=== PATIENT | male | born 1960 | race Caucasian/White ===

== ENCOUNTER 2020-08-22 10:51 | Outpatient (RCR) | payer BC, SELFPAY | END 2020-09-04 14:49 | disposition home or self-care (01) | LOC: HO.PTCHIC 10:51 | PROVIDERS: PCP Nurse Practitioner Family; Visit Provider Nurse Practitioner Family | DX: M54.31 Sciatica, right side (principal); M54.32 Sciatica, left side | CPT/HCPCS: 97014; 97110; 97140 ==

== ENCOUNTER 2020-11-13 09:18 | Outpatient (REF) | payer BC, SELFPAY ==
[2020-11-13 11:48] LABS: Alanine Aminotransferase 22 U/L (0-40); Albumin Level 4.4 g/dL (3.5-5.0); Alkaline Phosphatase 88 U/L (39-117); Anion Gap 14 (12-20); Aspartate Amino Transferase 19 U/L (5-37); Bilirubin Total 0.7 mg/dL (0.0-1.0); Blood Urea Nitrogen 17 mg/dL (9-16); Calcium 9.6 mg/dL (8.4-10.2); Carbon Dioxide 30 mmol/L (22-29); Chloride 99 mmol/L (96-108); Cholesterol 242 mg/dL; Estimated Glomerular Filt Rate > 60; Glucose Fasting 99 mg/dL (60-99); HDL Cholesterol 52 mg/dL; LDL Cholesterol Calculated 169 mg/dl; Potassium 4.3 mmol/l (3.3-5.1); Sodium 139 mmol/L (135-145); Total Protein 7.7 g/dL (6.5-8.0); Triglycerides 109 mg/dL
[2020-11-13 12:10] LABS: TSH reflex Free T4 1.92 mIU/mL (0.32-4.0)
== END 2020-11-13 09:19 | disposition home or self-care (01) ==
LOC: HO.HMGCLDS 09:18
PROVIDERS: PCP Nurse Practitioner Family; Visit Provider Nurse Practitioner Family
DX: Z00.00 Encounter for general adult medical examination without abnormal findings (principal)
CPT/HCPCS: 36415; 80053; 80061; 84443

== ENCOUNTER 2021-10-14 10:56 | Emergency (ER) | payer BC, SELFPAY ==
--- NOTE | 2021-10-14 | ECG_ITS ---
Test Reason : SHORTNESS OF BREATH Blood Pressure : / mmHG Vent. Rate : 081 BPM Atrial Rate : 081 BPM P-R Int : 178 ms QRS Dur : 098 ms QT Int : 374 ms P-R-T Axes : 002 -40 004 degrees QTc Int : 434 ms Normal sinus rhythm Left axis deviation Abnormal ECG When compared with ECG of 13-JAN-2011 06:54, No significant change was found Referred By: Partha Glover Electronically Signed By:David Damian
--- NOTE | ~2021-10-14 | XR_ITS ---
EXAMINATION: XR CHEST CLINICAL INFORMATION: SOB. COMPARISON: None TECHNIQUE: 2 views of the chest were obtained. FINDINGS: The lungs are somewhat expanded with platelike atelectasis in the lingula. Heart size and pulmonary vascularity is normal. No gross bony abnormality seen. XR/XR chest 2V IMPRESSION: Platelike atelectasis in the lingula. Rest of the lungs are clear.
[2021-10-14 11:54] VITALS: BP 129/85; PULSE 90; RESP 18; TEMP 37.1; O2SAT 96; BMI 29.9
[2021-10-14 13:03] VITALS: BP 158/84; PULSE 88; RESP 16; TEMP 36.3; O2SAT 96
--- NOTE | 2021-10-14 13:04 | ED.SOB ---
HPI - SOB/Dyspnea General Chief Complaint: Dyspnea Stated Complaint: COVID+, SOB Time Seen by Provider: 10/14/21 13:04 Source: patient Mode of arrival: ambulatory Limitations: no limitations History of Present Illness HPI Narrative: 8 days ago patient developed shortness of breath and chills. Tested positive 6 days ago. patient is vaccinated. patient with fatigue, chills, not eating, headache and cough. MD elicited complaint: shortness of breath and cough Onset (ago): week(s) Context: recent illness Timing: constant Severity: mild Relieving factors: nothing Related Data Previous Rx's Medication Instructions Recorded lisinopril 40 mg tablet 40 mg PO DAILY 90 Days #90 tab 01/29/21 Allergies Allergy/AdvReac Type Severity Reaction Status Date / Time No Known Allergies Allergy Verified 01/31/21 09:18 [No Known Allergies*] Review of Systems Constitutional: Constitutional: Reports no additional constitutional complaints Eyes: Eyes: Reports no additional eye complaints ENT: Denies dizziness Cardiovascular: Cardiovascular: Reports no additional cardiovascular complaints Respiratory: Respiratory: Reports as per HPI Gastrointestinal: Gastrointestinal: Reports no additional gastrointestinal complaints Musculoskeletal: Musculoskeletal: Reports no additional musculoskeletal complaints Integumentary/Breasts: Skin/Breast: Denies rash Neurologic: Reports system reviewed and no additional complaints, except as documented, Denies dizziness and Denies Sensory deficit (Neuro) Psychiatric: Psychiatric: Denies anxiety PMFSH Past Medical History Medical History HTN (hypertension) Lumbar radiculitis Nerve root compression Osteoarthritis Prostate CA Tubular adenoma Surgical History History of prostatectomy Family History Family History Father History of heart attack Mother No problems noted. Sister Breast cancer Social History Social History Alcohol intake: current Alcohol intake frequency: a few times a month Advance Directives: No Advance Directives Information Provided: No Physical Exam Vital Signs: Vital Signs: Last Vital Signs Temp 97.3 F 10/14/21 13:03 Pulse 88 10/14/21 13:03 Resp 16 10/14/21 13:03 BP 158/84 H 10/14/21 13:03 Pulse Ox 96 10/14/21 13:03 BMI result Body Mass Index 29.9 Const: General: healthy appearing Nutritional Appearance: average body habitus Orientation/consciousness: oriented to person and patient oriented x3 Limitations: no limitations HENMT: Head: Yes normal to inspection Ears: external ears normal General nose exam: Normal external nose present Mouth: Normal oral and palatal mucosa present and oropharynx normal Throat: Yes posterior oropharynx normal Eyes: General: appearance normal, both eyes and all related structures Neck: Other: supple Neck: Yes normal visual inspection Chest: Chest palpation & inspection: normal inspection of the chest Resp: Auscultation: clear to auscultation bilaterally Cardio: Jugular venous distension: no JVD Rate: regular rate Rhythm: regular rhythm Heart sounds: S1 normal heart sound present and S2 normal heart sound present GI: Inspection: Yes normal to inspection Palpation (GI): Soft to palpation, nontender and No hepatosplenomegaly present Auscultation: normal bowel sounds : General: Yes no CVA tenderness Back/Spine/Pelvis: Back: no CVA tenderness Skin: General skin exam: no rashes or lesions noted Neuro: General: oriented to person and patient oriented x3 Cranial nerves: Yes CN's II-XII intact bilaterally Motor exam (neuro): 5/5 motor strength present throughout Sensory Exam: No Sensory deficit (Neuro) Extrem: General: Yes normal to inspection Psych: Appearance: grossly normal Course Reevaluation(s) Reevaluation #1: patient day 8 into COVID, looking well, normal vitals, normal labs will dc home Time: 14:30 MDM - SOB/Dyspnea Lab Data Result diagrams: 10/14/21 13:09 10/14/21 13:09 Labs: Lab Results 10/14/21 10/14/21 Range/Units 13:09 13:09 WBC 5.3 (4.8-10.8) X10*3/uL RBC 5.35 (4.60-5.80) X10*6/uL Hgb 16.7 (14.0-18.0) g/dl Hct 49.6 (42.0-52.0) % MCV 92.7 (80.0-98.0) fL MCH 31.2 (27.0-33.0) pg MCHC 33.7 (31.0-36.0) g/dl RDW 12.0 (11.0-16.0) % Plt Count 127 L (160-400) X10*3/uL MPV 10.0 (9.4-12.4) fL Immature Gran % (Auto) 0.4 (0.0-0.4) % Neut % (Auto) 74.3 H (45-73) % Lymph % (Auto) 14.5 L (20-40) % Kern % (Auto) 10.6 (2-11) % Eos % (Auto) 0.0 (0-4) % Baso % (Auto) 0.2 (0-2) % Lymph # (Auto) 0.8 L (1.2-4.9) X10*3/uL Kern # (Auto) 0.6 (0.1-1.2) X10*3/uL Eos # (Auto) 0.0 (0.0-0.4) X10*3/uL Baso # (Auto) 0.0 (0.0-0.2) X10*3/uL Abs Immat Gran (auto) 0.02 (0.00-0.03) X10*3/uL Absolute Neuts (auto) 3.9 (2.0-8.3) x10*3/uL Absolute Nucleated RBC 0.000 (0.0-0.012) X10*3/uL Nucleated RBC % (auto) 0.0 (0.0-0.2) /100WBC Sodium 137 (135-145) mmol/L Potassium 4.5 (3.3-5.1) mmol/L Chloride 101 (96-108) mmol/L Carbon Dioxide 26 (22-29) mmol/L Anion Gap 15 (12-20) BUN 11 (9-16) mg/dL Creatinine 0.89 (0.5-1.4) mg/dL Estim Creat Clear Calc 102.0 Estimated GFR > 60 Random Glucose 112 (60-115) mg/dL Calcium 9.0 D (8.4-10.2) mg/dL Imaging Data Chest x-ray: Radiologist's impression: no infiltrate Discharge Plan Discharge Clinical Impression: COVID-19 Patient Disposition: Home, Self-Care Instructions: COVID-19 (Coronavirus Disease 2019) (ED) Prescriptions: No Action lisinopril 40 mg tablet 40 mg PO DAILY 90 Days Qty: 90 RF: 0 Referrals: Dillon Lopez, NANOTECHNOLOGY ENGINEERING TECHNOLOGIST-BC [Primary Care Provider] - 1 week
[2021-10-14 13:16] LABS: MANUAL DIFF FLAG NO
[2021-10-14 13:21] LABS: Basophils Percent Auto 0.2 % (0-2); Hematocrit 49.6 % (42.0-52.0); Hemoglobin 16.7 g/dl (14.0-18.0); Imm Gran Abs Auto 0.02 X10*3/uL (0.00-0.03); Imm Gran Pct Auto 0.4 % (0.0-0.4); Lymphocytes Absolute Auto 0.8 X10*3/uL (1.2-4.9); Lymphocytes Percent Auto 14.5 % (20-40); Mean Corpuscular HGB Conc 33.7 g/dl (31.0-36.0); Mean Corpuscular Hemoglobin 31.2 pg (27.0-33.0); Mean Corpuscular Volume 92.7 fL (80.0-98.0); Monocytes Absolute Auto 0.6 X10*3/uL (0.1-1.2); Monocytes Percent Auto 10.6 % (2-11); Neutrophils Absolute Auto 3.9 x10*3/uL (2.0-8.3); Neutrophils Percent Auto 74.3 % (45-73); Platelet Count 127 X10*3/uL (160-400); Red Blood Count 5.35 X10*6/uL (4.60-5.80); White Blood Count 5.3 X10*3/uL (4.8-10.8)
[2021-10-14 13:36] LABS: Anion Gap 15 (12-20); Blood Urea Nitrogen 11 mg/dL (9-16); Carbon Dioxide 26 mmol/L (22-29); Chloride 101 mmol/L (96-108); Estimated Glomerular Filt Rate > 60; Glucose Random 112 mg/dL (60-115); Potassium 4.5 mmol/L (3.3-5.1); Sodium 137 mmol/L (135-145)
== END 2021-10-14 14:49 | disposition home or self-care (01) ==
PROVIDERS: Emergency Provider Emergency Medicine; PCP Nurse Practitioner Family
DX: U07.1 COVID-19 (principal); R06.02 Shortness of breath
CPT/HCPCS: 36415; 71046; 80048; 85025; 93005; 99283; 99285

== ENCOUNTER 2021-11-19 09:28 | Outpatient (REF) | payer BC, SELFPAY ==
--- NOTE | ~2021-11-19 | XR_ITS ---
EXAMINATION: XR CHEST CLINICAL INFORMATION: Chest pain. COMPARISON: Chest radiograph dated from 10/14/2021. TECHNIQUE: 2 views of the chest were obtained. FINDINGS: Normal appearance of the cardiomediastinal silhouette. No focal airspace opacities, pleural effusions or pneumothorax. No acute osseous abnormalities. Visualized upper abdomen is within normal limits. XR/XR chest 2V IMPRESSION: No focal airspace opacities, pleural effusions or pneumothorax. Of note, chest radiographs have decreased sensitivity for evaluation of groundglass opacities.
[2021-11-19 11:49] LABS: MANUAL DIFF FLAG NO
[2021-11-19 11:57] LABS: Basophils Percent Auto 0.6 % (0-2); Eosinophils Absolute Auto 0.2 X10*3/uL (0.0-0.4); Eosinophils Percent Auto 2.7 % (0-4); Hematocrit 43.1 % (42.0-52.0); Hemoglobin 14.7 g/dl (14.0-18.0); Imm Gran Abs Auto 0.04 X10*3/uL (0.00-0.03); Imm Gran Pct Auto 0.6 % (0.0-0.4); Lymphocytes Absolute Auto 2.2 X10*3/uL (1.2-4.9); Lymphocytes Percent Auto 31.9 % (20-40); Mean Corpuscular HGB Conc 34.1 g/dl (31.0-36.0); Mean Corpuscular Hemoglobin 31.5 pg (27.0-33.0); Mean Corpuscular Volume 92.3 fL (80.0-98.0); Mean Platelet Volume 10.5 fL (9.4-12.4); Monocytes Absolute Auto 0.9 X10*3/uL (0.1-1.2); Monocytes Percent Auto 13.2 % (2-11); Neutrophils Absolute Auto 3.6 x10*3/uL (2.0-8.3); Platelet Count 293 X10*3/uL (160-400); Red Blood Count 4.67 X10*6/uL (4.60-5.80); Red Cell Distribution Width 12.5 % (11.0-16.0)
[2021-11-19 12:11] LABS: Troponin-I High Sensitivity 3.8 ng/L (<3.5-35.0)
[2021-11-19 12:15] LABS: Alanine Aminotransferase 56 U/L (0-40); Albumin Level 3.9 g/dL (3.5-5.0); Alkaline Phosphatase 75 U/L (39-117); Anion Gap 13 (12-20); Aspartate Amino Transferase 30 U/L (5-37); Bilirubin Total 0.4 mg/dL (0.0-1.0); Blood Urea Nitrogen 14 mg/dL (9-16); Calcium 9.4 mg/dL (8.4-10.2); Carbon Dioxide 25 mmol/L (22-29); Chloride 106 mmol/L (96-108); Estimated Glomerular Filt Rate > 60; Glucose Random 108 mg/dL (60-115); Potassium 4.2 mmol/L (3.3-5.1); Sodium 140 mmol/L (135-145); Total Protein 6.9 g/dL (6.5-8.0)
[2021-11-19 12:26] LABS: Prostate Specific Antigen Scr 0.09 ng/mL (<0.05-4.0)
== END 2021-11-19 09:29 | disposition home or self-care (01) ==
LOC: HO.HMGCLDS 09:28
PROVIDERS: PCP Nurse Practitioner Family; Visit Provider Nurse Practitioner Family
DX: Z12.5 Encounter for screening for malignant neoplasm of prostate (principal); R07.89 Other chest pain
CPT/HCPCS: 36415; 71046; 80053; 84153; 84484; 85025

== ENCOUNTER → 2022-01-13 09:25 | Outpatient (REF) | payer BC, SELFPAY ==
--- NOTE | 2022-01-13 09:31 | CA_ITS ---
Transthoracic Echocardiogram Patient (Last, First, Middle): Keenan Jurado P Gender: Male Date of : 1960 Age: 61 Procedure Date: 01/13/2022 Procedure Type: Transthoracic Echocardiogram Location: OP Height: 177.8 cm Weight: 99.79 kg BSA: 2.17 m2 Heart Rate: bpm BP: 130 / 85 mmHg Yarding Engineer: VH/OT Referring MD: Dillon Lopez [facility] Grain Distributor: Rolando Jane MD Symptoms: R07.89 - Other chest pain Study Quality: Fair ECG Rhythm: Sinus Conclusions: - 1. Normal LV systolic and diastolci function 2. Normal cardiac valvular Dopplers 3. Normal RVSP 4. No pericardial effusion Findings Left Ventricle Normal left ventricular size, thickness, and systolic function. The visually estimated ejection fraction is between 60-65%. Spectral Doppler is indicative of a normal filling pattern. Possible basal inferior wall motion abnormality is present. Right Ventricle Normal right ventricular cavity size and systolic function. Atria The left atrium is normal in size. Interatrial shunt cannot be excluded. The right atrium is normal in size. Aortic Valve There is mild calcification of the aortic valve. There is no aortic valve stenosis. There is no aortic valve regurgitation. Mitral Valve There is mild anterior and posterior mitral leaflet thickening. There is trace mitral valve regurgitation. There is no mitral valve stenosis. Pulmonic Valve The pulmonic valve was not well visualized. Tricuspid Valve Likely normal tricuspid valve structure and function. Tricuspid regurgitation envelope is inadequate for calculation of right ventricular systolic pressure. Great Vessels All visible segments of the aorta are normal in size. The pulmonary artery was not well visualized. Venous The inferior vena cava is normal in size and collapses greater than 50% with inspiration. Pericardium/Pleural There is no evidence of pericardial effusion. Measurements 2D Linear Measurements IVSd: 0.82 0.6-0.9/0.6-1.0 cm LVIDd: 5.03 3.9-5.3/4.2-5.9 cm LVIDd Index: 2.32 2.4-3.2/2.2-3.1 cm/m2 LVIDs: 3.28 2.0-3.6 cm LVPWd: 0.90 0.7-1.1 cm LA Diam: 4.20 2.7-3.8/3.0-4.0 cm LAIDs Index: 1.94 1.5-2.3 cm/m2 LV Mass: 188.63 67-162/88-224 g LV Mass Index: 86.93 43-95/49-115 g/m2 LVOT Diam: 2.10 3.0+(-)1.3 cm Mitral Valve MV Pk E: 0.77 MV PK A: 0.62 MV Decel Time: 184.00 E/A: 1.20 E'Lateral: 8.59 E'Medial: 6.74 E/E' Med: 11.40 E/E' Lat: 9.00 PHT: 54.00 MVA PHT: 4.07 Decel [place]: 4.19 Aortic Valve AoV Pk David: 1.32 AoV Mn David: 0.94 AoV VTI: 0.31 AoV Pk Grad: 7.00 Aov Mn Grad: 4.00 NILO Cont.VTI: 2.52 LVOT LVOT Pk David: 0.99 LVOT Mn David: 0.68 LVOT VTI: 0.22 LVOT Pk Grad: 4.00 LVOT Mn Grad: 2.00 LVOT Diam: 2.10 LVOT Area: 3.46 Diastolic Function MV Pk E: 0.77 MV Pk A: 0.62 E/A: 1.20 E'Medial: 6.74 E/E' Med: 11.40 E' Laterial: 8.59 E/E' Lat: 9.00 Tricuspid Valve RA Press: 3.00 Great Vessels Aorta Ao Asc: 3.50 2.1-3.4 cm Pulmonary Valve PV Pk David: 1.07 Peak PV Grad: 5.00 Updated in Other Vendor System with Status of Final Rolando Jane MD electronically signed on 01/13/2022 8:49:19 PM with status of Final
== END ==
LOC: HO.CARD 09:25
PROVIDERS: PCP Nurse Practitioner Family; Visit Provider Nurse Practitioner Family
DX: R07.89 Other chest pain (principal)
CPT/HCPCS: 93306

== ENCOUNTER → 2022-01-31 08:50 | Outpatient (BNVA) | payer BC, SELFPAY | PROVIDERS: PCP Nurse Practitioner Family; Visit Provider Urology | DX: C61 Malignant neoplasm of prostate (principal); R97.20 Elevated prostate specific antigen [PSA] | CPT/HCPCS: 99212 ==

== ENCOUNTER 2022-07-24 11:09 | Outpatient (REF) | payer BC, SELFPAY ==
[2022-07-24 14:49] LABS: Prostate Specific Antigen 0.09 ng/mL (<0.05-4.0)
== END 2022-07-24 11:10 | disposition home or self-care (01) ==
LOC: HO.HMGCLDS 11:09
PROVIDERS: PCP Nurse Practitioner Family; Visit Provider Urology
DX: Z12.5 Encounter for screening for malignant neoplasm of prostate (principal); C61 Malignant neoplasm of prostate
CPT/HCPCS: 36415; 84153

== ENCOUNTER 2022-11-11 08:23 | Outpatient (REF) | payer BC, SELFPAY ==
[2022-11-11 11:19] LABS: MANUAL DIFF FLAG NO
[2022-11-11 11:30] LABS: Appearance Urine Clear; Color Urine Yellow; Glucose Urine UA Negative (Negative); Leukocyte Esterase Urine Negative (Negative); Nitrite Urine Negative (Negative); PH 5.5 (5.0-9.0); Specific Gravity - Urine 1.025 (1.005-1.025); Urine Blood Negative (Negative); Urine Ketones Negative (Negative); Urine Protein Negative (Neg-Trace)
[2022-11-11 11:36] LABS: Basophils Percent Auto 0.5 % (0-2); Eosinophils Absolute Auto 0.4 X10*3/uL (0.0-0.4); Eosinophils Percent Auto 4.8 % (0-4); Hematocrit 46.6 % (42.0-52.0); Hemoglobin 15.4 g/dl (14.0-18.0); Imm Gran Abs Auto 0.04 X10*3/uL (0.00-0.03); Imm Gran Pct Auto 0.5 % (0.0-0.4); Lymphocytes Absolute Auto 2.7 X10*3/uL (1.2-4.9); Mean Corpuscular Hemoglobin 30.7 pg (27.0-33.0); Mean Platelet Volume 10.2 fL (9.4-12.4); Monocytes Absolute Auto 1.1 X10*3/uL (0.1-1.2); Monocytes Percent Auto 12.1 % (2-11); Neutrophils Absolute Auto 4.5 x10*3/uL (2.0-8.3); Neutrophils Percent Auto 51.1 % (45-73); Platelet Count 244 X10*3/uL (160-400); Red Blood Count 5.01 X10*6/uL (4.60-5.80); Red Cell Distribution Width 12.6 % (11.0-16.0); White Blood Count 8.8 X10*3/uL (4.8-10.8)
[2022-11-11 11:46] LABS: Alanine Aminotransferase 20 U/L (0-40); Albumin Level 4.2 g/dL (3.5-5.0); Alkaline Phosphatase 95 U/L (39-117); Anion Gap 13 (12-20); Aspartate Amino Transferase 20 U/L (5-37); Bilirubin Total 0.7 mg/dL (0.0-1.0); Blood Urea Nitrogen 22 mg/dL (9-16); Calcium 9.1 mg/dL (8.4-10.2); Carbon Dioxide 28 mmol/L (22-29); Chloride 100 mmol/L (96-108); Cholesterol 248 mg/dL; Estimated Glomerular Filt Rate > 60; Glucose Fasting 97 mg/dL (60-99); HDL Cholesterol 49 mg/dL; LDL Cholesterol Calculated 180 mg/dl; Potassium 4.4 mmol/L (3.3-5.1); Sodium 137 mmol/L (135-145); Total Protein 7.2 g/dL (6.5-8.0); Triglycerides 96 mg/dL
[2022-11-11 12:09] LABS: TSH reflex Free T4 1.81 uIU/mL (0.32-4.0)
== END 2022-11-11 08:24 | disposition home or self-care (01) ==
LOC: HO.HMGCLDS 08:23
PROVIDERS: PCP Nurse Practitioner Family; Visit Provider Nurse Practitioner Family
DX: Z00.00 Encounter for general adult medical examination without abnormal findings (principal)
CPT/HCPCS: 36415; 80053; 80061; 81003; 84443; 85025

== ENCOUNTER 2023-01-22 07:37 | Outpatient (REF) | payer BC, SELFPAY ==
[2023-01-22 11:51] LABS: Cholesterol 153 mg/dL; HDL Cholesterol 49 mg/dL; LDL Cholesterol Calculated 95 mg/dl; Triglycerides 49 mg/dL
[2023-01-22 12:32] LABS: Prostate Specific Antigen 0.11 ng/mL (<0.05-4.0)
== END 2023-01-22 07:38 | disposition home or self-care (01) ==
LOC: HO.HMGCLDS 07:37
PROVIDERS: Absent Provider Urology; PCP Nurse Practitioner Family; Visit Provider Nurse Practitioner Family
DX: Z12.5 Encounter for screening for malignant neoplasm of prostate (principal); C61 Malignant neoplasm of prostate; E78.5 Hyperlipidemia, unspecified
CPT/HCPCS: 36415; 80061; 84153

== ENCOUNTER → 2023-02-03 09:16 | Outpatient (BNVA) | payer BC, SELFPAY | PROVIDERS: PCP Nurse Practitioner Family; Visit Provider Urology | DX: Z13.89 Encounter for screening for other disorder (principal) ==

== ENCOUNTER 2023-06-22 08:37 | Outpatient (REF) | payer BC, SELFPAY ==
[2023-06-22 11:54] LABS: MANUAL DIFF FLAG NO
[2023-06-22 11:54] LABS: Appearance Urine Clear; Color Urine Yellow; Glucose Urine UA Negative (Negative); Leukocyte Esterase Urine Negative (Negative); Nitrite Urine Negative (Negative); PH 5.5 (5.0-9.0); Urine Blood Negative (Negative); Urine Ketones Negative (Negative); Urine Protein Negative (Neg-Trace)
[2023-06-22 12:19] LABS: Basophils Absolute Auto 0.1 X10*3/uL (0.0-0.2); Basophils Percent Auto 0.6 % (0-2); Eosinophils Absolute Auto 0.4 X10*3/uL (0.0-0.4); Hematocrit 47.6 % (42.0-52.0); Hemoglobin 15.9 g/dl (14.0-18.0); Imm Gran Abs Auto 0.04 X10*3/uL (0.00-0.03); Imm Gran Pct Auto 0.5 % (0.0-0.4); Lymphocytes Absolute Auto 2.5 X10*3/uL (1.2-4.9); Lymphocytes Percent Auto 31.5 % (20-40); Mean Corpuscular HGB Conc 33.4 g/dl (31.0-36.0); Mean Corpuscular Hemoglobin 31.7 pg (27.0-33.0); Mean Platelet Volume 10.8 fL (9.4-12.4); Monocytes Absolute Auto 0.8 X10*3/uL (0.1-1.2); Monocytes Percent Auto 9.7 % (2-11); Neutrophils Absolute Auto 4.2 x10*3/uL (2.0-8.3); Neutrophils Percent Auto 52.7 % (45-73); Platelet Count 245 X10*3/uL (160-400); Red Blood Count 5.01 X10*6/uL (4.60-5.80); Red Cell Distribution Width 12.9 % (11.0-16.0); White Blood Count 7.9 X10*3/uL (4.8-10.8)
[2023-06-22 12:58] LABS: Alanine Aminotransferase 15 U/L (0-40); Alkaline Phosphatase 78 U/L (39-117); Anion Gap 12 (12-20); Aspartate Amino Transferase 16 U/L (5-37); Bilirubin Total 0.4 mg/dL (0.0-1.0); Blood Urea Nitrogen 18 mg/dL (9-16); Calcium 9.4 mg/dL (8.4-10.2); Carbon Dioxide 28 mmol/L (22-29); Chloride 103 mmol/L (96-108); Cholesterol 181 mg/dL; Estimated Glomerular Filt Rate > 60; Glucose Fasting 106 mg/dL (60-99); HDL Cholesterol 48 mg/dL; LDL Cholesterol Calculated 102 mg/dl; Sodium 139 mmol/L (135-145); TSH reflex Free T4 2.25 uIU/mL (0.32-4.0); Total Protein 7.3 g/dL (6.5-8.0); Triglycerides 155 mg/dL
== END 2023-06-22 08:38 | disposition home or self-care (01) ==
LOC: HO.HMGCLDS 08:37
PROVIDERS: PCP Nurse Practitioner Family; Visit Provider Nurse Practitioner Family
DX: E78.5 Hyperlipidemia, unspecified (principal); I10 Essential (primary) hypertension
CPT/HCPCS: 36415; 80053; 80061; 81003; 84443; 85025

== ENCOUNTER 2023-06-29 08:30 | Outpatient (AMB) | payer BC, SELFPAY ==
[2023-06-29 08:41] VITALS: BP 130/84; PULSE 78; O2SAT 95; BMI 32.0
--- NOTE | 2023-06-29 08:41 | MHC.PC.OV ---
Vital Signs 06/29/23 08:41 Height 5 ft 10 in Weight 223 lb 4 oz BMI 32.0 BP 130/84 Blood Pressure Location Lt brachial Position Sitting Pulse 78 Pulse Source Pulse Oximeter Pulse Oximetry (%) 95 Oxygen Delivery Method Room Air Intake Visit Reasons: 5 month follow up Allergies No Known Allergies [No Known Allergies*] Allergy (Verified 06/29/23 08:45) Tobacco use date assessed: 02/02/23 Dental Screening Dental Screen Date: 06/29/23 Did you have a dental visit in the last 12 months?: No Did you have a dental problem in the last 6 months where you did not have access to dental care?: No Was dental information given to patient?: No HPI 5 month follow up HPI Details HTN: Blood pressure is stable, managed with lisinopril 40mg. Dyslipidemia: On rosuvastatin 10mg. Will order labs. Denies chest pain, shortness of breath, headache, dizziness, and blurred vision. Pt is currently undergoing radiation at [facility] for prostate cancer. [facility] Medical History HTN (hypertension) Lumbar radiculitis Nerve root compression Osteoarthritis Post-COVID chronic decreased mobility and endurance Prostate CA Tubular adenoma Surgical History History of prostatectomy Family History Father History of heart attack Mother No problems noted. Sister Breast cancer Daughter Mental health disorder Social History Housing: House Alcohol intake: current Alcohol intake frequency: a few times a month Patient Tobacco Use Status: Never used Tobacco e-Cigarette/Vaping Use: Never Used Second Hand Smoke Exposure: No service: No Current occupational status: employed Current occupation: [employer] Current occupational exposures/hazards: Yes Cognitive needs: No Hearing needs: No Vision needs: No Questionnaire Thrive Questionnaire Date Thrive assessed: 10/08/22 SYLVIA-7 AMB Questionnaire SYLVIA-7 Date SYLVIA - 7 assessed: 10/08/22 Source: Developed by Drs. Keenan Allen, Ava Lobo, Laron Jimenez and colleagues, with an educational miracle from [employer]. Review of Systems Const Reports as per HPI Physical exam (Primary Care) Vital Signs: Last Vital Signs Pulse 78 06/29/23 08:41 BP 130/84 06/29/23 08:41 Pulse Ox 95 06/29/23 08:41 Oxygen Delivery Method Room Air 06/29/23 08:41 BMI result Body Mass Index 32.0 Tobacco/Smoking Status: Tobacco use Status Tobacco use date assessed 02/02/23 06/29/23 08:46 Patient Tobacco Use Status Never used Tobacco 06/29/23 08:46 e-Cigarette/Vaping Use Never Used 06/29/23 08:46 Thrive Assessment: Date of Thrive Assessment Date Thrive assessed 10/08/22 06/29/23 08:46 Const General: cooperative Nutritional Appearance: obese Orientation/consciousness: patient oriented x3 Resp Effort & Inspection: normal respiratory effort Auscultation: clear to auscultation bilaterally Cardio Rate: regular rate Rhythm: regular rhythm Heart sounds: S1 normal heart sound present and S2 normal heart sound present Neuro General: patient oriented x3 Psych Appearance: grossly normal Mental Status: mental status grossly normal Speech and movement: Normal speech and movement present Affect: normal affect Attitude: cooperative Thought process: Normal thought process present Thought content: Normal thought content present Insight: Good insight present (Psych) Judgement: Good judgement present (Psych) Assessment and Plan Assessment & Plan (1) HTN (hypertension): Code(s): I10 - Essential (primary) hypertension Plan: Labs ordered (2) Dyslipidemia: Code(s): E78.5 - Hyperlipidemia, unspecified Plan: Labs ordered Plan The patient agreed to the use of a medical parasitologist for this encounter. Scribed for AMANDA Bustamante by Sharda Gentile medical parasitologist, on 06/29/2023 at 08:55 EST. Orders: Orders Comprehensive Bowman. Panel Fast Today E78.5 - Hyperlipidemia, unspecified, I10 - Essential (primary) hypertension Lipid Panel Today E78.5 - Hyperlipidemia, unspecified, I10 - Essential (primary) hypertension TSH reflex Free T4 Today E78.5 - Hyperlipidemia, unspecified, I10 - Essential (primary) hypertension Complete Blood Count Auto Diff Today E78.5 - Hyperlipidemia, unspecified, I10 - Essential (primary) hypertension UA CC w/rflx Micro + Cult Today E78.5 - Hyperlipidemia, unspecified, I10 - Essential (primary) hypertension Coding Level of Care Code Est Pt Level 3 (35122) Diagnoses HTN (hypertension) I10 Dyslipidemia E78.5
== END 2023-06-29 09:02 | disposition home or self-care (01) ==
PROVIDERS: PCP Nurse Practitioner Family; Visit Provider Nurse Practitioner Family
DX: I10 Essential (primary) hypertension (principal); E78.5 Hyperlipidemia, unspecified
CPT/HCPCS: 99213

== ENCOUNTER 2023-11-20 06:11 | Day surgery (SDC) | payer BC, SELFPAY ==
[2023-11-18 10:07] VITALS: BMI 32.0
--- NOTE | 2023-11-19 09:57 | HO.ANESPROP2 ---
Documented by User: Florecita Jules NP 11/19/23 09:58 HPI - Anesthesia Eval Consult details Narrative: 63yo M for Colonoscopy PMFSH Active Problems Active Problems: All Active Problems (Updated 11/18/23 @ 10:11 by Jennifer Lundy, DEAN) Rising PSA following treatment for malignant neoplasm of prostate (Acute) Dyslipidemia (Acute) Skin lesions (Acute) Screening for colon cancer (Acute) Rising PSA level (Acute) Screening PSA (prostate specific antigen) (Acute) Chest discomfort (Acute) Fatigue (Acute) COVID-19 (Acute) Cerumen impaction (Acute) Bilateral hearing loss due to cerumen impaction (Acute) Screening PSA (prostate specific antigen) (Acute) Physical exam (Acute) HTN (hypertension) (Acute) Prostate CA (Acute) History of prostatectomy (Acute) Post-COVID chronic decreased mobility and endurance (Acute) Past Medical History Medical History (Updated 11/20/23 @ 06:48 by Eneida Pfeiffer) History of radiation therapy Elevated cholesterol Post-COVID chronic decreased mobility and endurance Nerve root compression Lumbar radiculitis Tubular adenoma Prostate CA Osteoarthritis HTN (hypertension) Family History Family History Father History of heart attack Mother No problems noted. Sister Breast cancer Daughter Mental health disorder Surgical History Surgical History (Updated 11/20/23 @ 06:48 by Eneida Pfeiffer) History of knee surgery H/O colonoscopy Hx of prostate biopsy Hx of cystoscopy History of prostatectomy Social History Social History (Reviewed 02/03/23 @ 09:19 by Salma Curry [facility]) Housing: House Alcohol intake: current Alcohol intake frequency: a few times a month Patient Tobacco Use Status: Never used Tobacco e-Cigarette/Vaping Use: Never Used Second Hand Smoke Exposure: No Use of substances other than those prescribed or required for medical reasons: No Are you DNR?: No Advance Directives: No Advance Directives Information Provided: Yes service: No Current occupational status: employed Current occupation: [employer] Current occupational exposures/hazards: Yes Cognitive needs: No Hearing needs: No Vision needs: No Meds Allergies Allergy/AdvReac Type Severity Reaction Status Date / Time No Known Allergies Allergy Verified 11/20/23 06:48 [No Known Allergies*] Exam Height,Weight and Vital Signs: Height 5 ft 10 in Weight 101.151 kg Pertinent Lab Results Pertinent Lab Results: Laboratory Tests 06/22/23 08:43 WBC 7.9 Hgb 15.9 Hct 47.6 Plt Count 245 Sodium 139 Potassium 4.0 Chloride 103 Carbon Dioxide 28 BUN 18 H Creatinine 0.92 Narrative Narrative: ECHO 2021 Conclusions: - 1. Normal LV systolic and diastolci function 2. Normal cardiac valvular Dopplers 3. Normal RVSP 4. No pericardial effusion Assessment and Plan Assessment Anesthesia Assessment: Chart Reviewed Documented by User: Muriel Chun MD 11/20/23 08:13 PMFSH Active Problems Active Problems: All Active Problems (Updated 11/20/23 @ 07:20 by Muriel Chun MD) Rising PSA following treatment for malignant neoplasm of prostate (Acute) Dyslipidemia (Acute) Skin lesions (Acute) Screening for colon cancer (Acute) Chest discomfort (Acute) Fatigue (Acute) Cerumen impaction (Acute) Bilateral hearing loss due to cerumen impaction (Acute) HTN (hypertension) (Acute) Prostate CA (Acute) History of prostatectomy (Acute) Post-COVID chronic decreased mobility and endurance (Acute) Snores but never had sleep study Past Medical History Medical History (Updated 11/20/23 @ 06:48 by Eneida Pfeiffer) History of radiation therapy Elevated cholesterol Post-COVID chronic decreased mobility and endurance Nerve root compression Lumbar radiculitis Tubular adenoma Prostate CA Osteoarthritis HTN (hypertension) Family History Family History Father History of heart attack Mother No problems noted. Sister Breast cancer Daughter Mental health disorder Family history of problems with anesthesia: No Surgical History Surgical History (Updated 11/20/23 @ 06:48 by Eneida Pfeiffer) History of knee surgery H/O colonoscopy Hx of prostate biopsy Hx of cystoscopy History of prostatectomy History of Problems with Anesthesia: No Social History Social History Housing: House Alcohol intake: current Alcohol intake frequency: a few times a month Patient Tobacco Use Status: Never used Tobacco e-Cigarette/Vaping Use: Never Used Second Hand Smoke Exposure: No Use of substances other than those prescribed or required for medical reasons: No Are you DNR?: No Advance Directives: No Advance Directives Information Provided: Yes service: No Current occupational status: employed Current occupation: [employer] Current occupational exposures/hazards: Yes Cognitive needs: No Hearing needs: No Vision needs: No Meds Allergies Allergy/AdvReac Type Severity Reaction Status Date / Time No Known Allergies Allergy Verified 11/20/23 06:48 [No Known Allergies*] Exam Height,Weight and Vital Signs: Height 5 ft 10 in Weight 101.151 kg Vital Signs Temp Pulse Resp BP Pulse Ox O2 Del Method 11/20/23 06:49 97.7 F 70 16 143/82 H 98 Room Air Airway Mallampati Class: III TM Dist: >3cm Neck ROM: Full Loose/Missing/Broken Teeth: Yes (Some broken teeth. Denies missing or loose teeth) Heart: RRR Lungs: CTAB Assessment and Plan Assessment Anesthesia Assessment: Anesthesia Plan Discussed Final Anesthetic Review Family History of Problems with Anesthesia: No History of Problems with Anesthesia: No NPO: Yes ASA Class: III Final Preanesthetic Review: No Changes in Pt Med Stat, Meds/Allgs Chart Reviewed, Consent Obtained/Reviewed and Anes Risks/Benef Reviewed Patient Risk: Intermediate Procedure Risk: Low Assessment/Block/Sedation in SS: Assess/Block/Sedation-SS Anesthetic Plan Anesthetic Plan: TIVA Disposition: Standard PACU
[2023-11-20 06:49] VITALS: BP 143/82; PULSE 70; RESP 16; TEMP 36.5; O2SAT 98; BMI 32.9
[2023-11-20] MEDS: Lactated Ringers 1,000 ML 100 ML IVCONT (07:07)
--- NOTE | 2023-11-20 08:28 | P.BOP_ITS ---
Brief Operative Note Date of Service: 11/20/23 Pre-op diagnosis: Screening Post-op diagnosis: other (Colon polyps) Procedure: Colonoscopy to the cecum and TI with hot snare polypectomy x 2 Surgeon: Keenan Pickering MD Anesthesia: MAC Was an Wastewater Treatment Supervisor used for this Procedure?: No Estimated blood loss (mL): 0 Pathology: other (A. Transverse colon polyp B. Polyp at 30cm) Condition: stable Disposition: PACU
[2023-11-20 08:33] VITALS: BP 96/57; PULSE 68; RESP 16; TEMP 36.6; O2SAT 97
[2023-11-20 08:48] VITALS: BP 127/79; PULSE 68; RESP 16; TEMP 36.2; O2SAT 95
[2023-11-20 08:54] VITALS: BP 129/75; PULSE 65; RESP 16; TEMP 36.2; O2SAT 95
--- NOTE | 2023-11-20 09:58 | OP_ITS ---
DATE OF SERVICE: 11/20/2023 SURGEON: Keenan Pickering MD INDICATIONS: The patient presents for evaluation of personal history of tubular adenoma of the colon, colorectal cancer screening. Full consent was obtained from him for the procedure, including risks of bleeding and perforation. PREOPERATIVE DIAGNOSIS: POSTOPERATIVE DIAGNOSIS: PROCEDURE PERFORMED: Colonoscopy to the cecum and terminal ileum with hot snare polypectomy x2. ESTIMATED BLOOD LOSS: COMPLICATIONS: ANESTHESIA: Monitored anesthesia care. ASSISTANTS: SPECIMENS: PREOPERATIVE DIAGNOSES: Colorectal cancer screening and personal history of tubular adenoma of the colon. POSTOPERATIVE DIAGNOSES: Colorectal cancer screening and personal history of tubular adenoma of the colon, colon polyps, diverticulosis, and internal hemorrhoids. DESCRIPTION OF PROCEDURE: The patient was placed in the left lateral decubitus position. The digital rectal exam revealed no abnormalities. The Olympus video pediatric colonoscope was entered into the rectum and advanced easily to the cecum. Once in the cecum, I did identify normal-appearing cecal pouch with appendiceal orifice and a normal-appearing ileocecal valve. The terminal ileum was cannulated and appeared normal. Scope was withdrawn back in the colon. The entire cecum and ileocecal valve appeared normal. The scope was slowly withdrawn assessing all mucosal surfaces carefully. Preparation was excellent. In the transverse colon, there was an approximately 5 or 6 mm polyp, which was removed by hot snare polypectomy, recovered by suction. The polypectomy site appeared clean, without any sign of residual polyp nor bleeding. At 30 cm was an approximately 8 mm polyp, which was removed by hot snare polypectomy and recovered by suction. The polypectomy site appeared clean, without any sign of residual polyp nor bleeding. I did not visualize any other polyps, colitis, nor angiodysplasia. There was a mild amount of sigmoid diverticulosis. In the rectum, scope was retroflexed visualizing internal hemorrhoids. Also noted were several telangiectasias consistent with his previous radiation treatments, but there was no evidence of any active proctitis nor significant changes otherwise. The scope was straightened and withdrawn from the patient. He tolerated the procedure well and was returned to recovery area in stable condition. IMPRESSION: 1. Colon polyps. 2. Diverticulosis. 3. Internal hemorrhoids. 4. Slight radiation changes in the rectum with some telangiectasias. PLAN: The results of the pathology will be checked. I would recommend a repeat colonoscopy in 5 years. He was advised not to use any aspirin or NSAIDs for 1 week. This has been discussed with his . MD GERSON Ivey/JUNI / [id number]
== END 2023-11-20 09:22 | disposition home or self-care (01) ==
PROVIDERS: Visit Provider Internal Medicine
PROC: 0DJD8ZZ Inspection of Lower Intestinal Tract, Via Natural or Artificial Opening Endoscopic (ICD-10-PCS; CPT 45378; principal; 2023-11-20 07:30)
DX: Z12.11 Encounter for screening for malignant neoplasm of colon (principal); Z86.010 Personal history of colon polyps; D12.3 Benign neoplasm of transverse colon; K63.5 Polyp of colon; K57.30 Diverticulosis of large intestine without perforation or abscess without bleeding; K64.8 Other hemorrhoids; I78.1 Nevus, non-neoplastic; Z92.3 Personal history of irradiation
CPT/HCPCS: 45385; 88305; J1100; J1596; J2371; J2704

== ENCOUNTER 2023-12-08 08:14 | Outpatient (REF) | payer BC, SELFPAY ==
[2023-12-08 10:21] LABS: MANUAL DIFF FLAG NO
[2023-12-08 10:31] LABS: Appearance Urine Clear; Color Urine Yellow; Glucose Urine UA Negative (Negative); Leukocyte Esterase Urine Negative (Negative); Nitrite Urine Negative (Negative); Specific Gravity - Urine 1.025 (1.005-1.025); UMIC TRIGGER UACC YES; Urine Blood Trace (Negative); Urine Ketones Negative (Negative); Urine Protein Negative (Neg-Trace)
[2023-12-08 10:37] LABS: Basophils Percent Auto 0.5 % (0-2); Eosinophils Absolute Auto 0.4 X10*3/uL (0.0-0.4); Eosinophils Percent Auto 5.3 % (0-4); Hematocrit 41.3 % (42.0-52.0); Hemoglobin 13.7 g/dl (14.0-18.0); Imm Gran Abs Auto 0.02 X10*3/uL (0.00-0.03); Imm Gran Pct Auto 0.3 % (0.0-0.4); Lymphocytes Absolute Auto 1.1 X10*3/uL (1.2-4.9); Lymphocytes Percent Auto 16.9 % (20-40); Mean Corpuscular HGB Conc 33.2 g/dl (31.0-36.0); Mean Corpuscular Hemoglobin 31.8 pg (27.0-33.0); Mean Corpuscular Volume 95.8 fL (80.0-98.0); Mean Platelet Volume 10.8 fL (9.4-12.4); Monocytes Absolute Auto 0.8 X10*3/uL (0.1-1.2); Monocytes Percent Auto 12.5 % (2-11); Neutrophils Absolute Auto 4.3 x10*3/uL (2.0-8.3); Neutrophils Percent Auto 64.5 % (45-73); Platelet Count 257 X10*3/uL (160-400); Red Blood Count 4.31 X10*6/uL (4.60-5.80); Red Cell Distribution Width 12.5 % (11.0-16.0); White Blood Count 6.6 X10*3/uL (4.8-10.8)
[2023-12-08 10:44] LABS: Bacteria Urine None Seen (None Seen); Hyaline Casts Urine 0-2 /LPF (0-2); RBC Urine 0-2 /HPF (0-2); Squamous Epithelial Cell Urine 0-2 /HPF (0-2); WBC Urine 0-5 /HPF (0-5)
[2023-12-08 10:56] LABS: Alanine Aminotransferase 18 U/L (0-40); Albumin Level 3.9 g/dL (3.5-5.0); Alkaline Phosphatase 89 U/L (39-117); Anion Gap 14 (12-20); Aspartate Amino Transferase 19 U/L (5-37); Bilirubin Total 0.5 mg/dL (0.0-1.0); Blood Urea Nitrogen 14 mg/dL (9-16); Calcium 9.1 mg/dL (8.4-10.2); Carbon Dioxide 25 mmol/L (22-29); Chloride 107 mmol/L (96-108); Cholesterol 143 mg/dL (<200); Estimated Glomerular Filt Rate > 60; Glucose Fasting 98 mg/dL (60-99); HDL Cholesterol 47 mg/dL (>40); LDL Cholesterol Calculated 82 mg/dL (<100); Potassium 3.8 mmol/L (3.3-5.1); Sodium 142 mmol/L (135-145); Triglycerides 71 mg/dL (<150)
[2023-12-08 11:02] LABS: Prostate Specific Antigen < 0.10 ng/mL (<0.05-4.0)
[2023-12-08 11:14] LABS: TSH reflex Free T4 1.51 uIU/mL (0.32-4.0)
== END 2023-12-08 08:15 | disposition home or self-care (01) ==
LOC: HO.HMGCLDS 08:14
PROVIDERS: Urology; PCP Nurse Practitioner Family; Visit Provider Nurse Practitioner Family
DX: Z12.5 Encounter for screening for malignant neoplasm of prostate (principal); E78.5 Hyperlipidemia, unspecified; I10 Essential (primary) hypertension; C61 Malignant neoplasm of prostate
CPT/HCPCS: 36415; 80053; 80061; 81001; 84153; 84443; 85025

== ENCOUNTER 2023-12-31 10:11 | Outpatient (AMB) | payer BC, SELFPAY ==
[2023-12-31 10:21] VITALS: BP 120/68; PULSE 71; O2SAT 98; BMI 32.3
--- NOTE | 2023-12-31 10:21 | MHC.PC.OV ---
Vital Signs 12/31/23 10:21 Height 5 ft 10 in Weight 225 lb 6 oz BMI 32.3 BP 120/68 Blood Pressure Location Rt brachial Position Sitting Pulse 71 Pulse Source Pulse Oximeter Pulse Oximetry (%) 98 Oxygen Delivery Method Room Air Intake Visit Reasons: Annual PE Intake Note: Pt is here for his Annual PE Allergies No Known Allergies [No Known Allergies*] Allergy (Verified 12/31/23 11:00) Medication List - Last Reconciled 12/31/23 by AMANDA Martin dexamethasone 4 mg orally 1 tab 3 times a day for 3 days, 1 tab twice a day for 3 days, 1 tab daily for 3 days; 9 days lisinopril 40 mg PO DAILY rosuvastatin 10 mg PO DAILY Tobacco use date assessed: 12/31/23 Dental Screening Dental Screen Date: 12/31/23 Did you have a dental visit in the last 12 months?: No Did you have a dental problem in the last 6 months where you did not have access to dental care?: No Was dental information given to patient?: Patient has dentist HPI Annual PE HPI Details Pt is here for a PE. Will order labs. Colon screen is up to date. PSA is up to date. Pt sees urology. Pt has a hx of chronic lower back pain. He reports radicular symptoms down his BLE. Will send dexamethasone taper. Denies any signs of cauda equina. [facility] Medical History (Updated 12/31/23 @ 11:12 by AMANDA Martin) Chronic radicular pain of lower back History of radiation therapy Elevated cholesterol Post-COVID chronic decreased mobility and endurance Nerve root compression Lumbar radiculitis Tubular adenoma Prostate CA Osteoarthritis HTN (hypertension) Surgical History History of knee surgery H/O colonoscopy Hx of prostate biopsy Hx of cystoscopy History of prostatectomy Family History Father History of heart attack Mother No problems noted. Sister Breast cancer Daughter Mental health disorder Social History Housing: House Alcohol intake: current Alcohol intake frequency: a few times a month Patient Tobacco Use Status: Never used Tobacco e-Cigarette/Vaping Use: Never Used Second Hand Smoke Exposure: No service: No Current occupational status: employed Current occupation: [employer] Current occupational exposures/hazards: Yes Cognitive needs: No Hearing needs: No Vision needs: No Questionnaire PHQ-9 Over the last 2 weeks, how often have you been bothered by any of the following problems? 1. Little interest or pleasure in doing things: not at all 2. Feeling down, depressed, or hopeless: not at all 3. Trouble falling or staying asleep, or sleeping too much: several days 4. Feeling tired or having little energy: not at all 5. Poor appetite or overeating: not at all 6. Feeling bad about yourself - or that you are a failure or have let yourself or your family down: not at all 7. Trouble concentrating on things, such as reading the newspaper or watching television: not at all 8. Moving or speaking so slowly that other people could have noticed. Or the opposite - being so fidgety or restless that you have been moving around a lot more than usual: not at all 9. Thoughts that you would be better off or of hurting yourself in some way: not at all Total score: 1 Depression Screening Interpretation: Negative Depression Screening Done: Yes 11032 - PHQ-9 Billing: Yes Source: Developed by Drs. Keenan Allen, Ava Lobo, Laron Jimenez and colleagues, with an educational miracle from [employer]. Thrive Questionnaire Date Thrive assessed: 12/31/23 I am a: Patient What is your living situation today?: I have a steady place to live Within the past 12 months, did the food you bought not last and you didn't have the money to get more?: Never true Within the past 12 months, did you worry whether your food would run out before you got money to buy more?: Never true Do you have trouble paying for medicines?: No Do you have trouble getting transportation to medical appointments?: No Do you have trouble paying your heating and electricity bill?: No Do you have trouble taking care of your child, family member or friend?: No Do you have trouble with day-to-day activities such as bathing, preparing meals, shopping, managing finances, etc.?: No Are you currently unemployed and looking for a job?: No Are you interested in more education?: No Currently or been in a relationship where the following occur: no concerns reported THRIVE Score: 0 AUDIT C Alcohol Use Questionnaire (AUDIT-C) 1. How often do you have a drink containing alcohol?: 2-4 times a month 2. How many drinks containing alcohol do you have on a typical day when you are drinking?: 5 or 6 3. How often do you have six or more drinks on one occasion?: Monthly Total Score: 6 Score Reviewed/Action Taken: Yes SYLVIA-7 AMB Questionnaire SYLVIA-7 Date SYLVIA - 7 assessed: 12/31/23 Feeling nervous, anxious, or on edge: 0 = Not at all Not being able to stop or control worryin = Not at all Worrying too much about different things: 0 = Not at all Trouble relaxin = Not at all Being so restless that it is hard to sit still: 0 = Not at all Becoming easily annoyed or irritable: 0 = Not at all Feeling afraid as if something awful might happen: 0 = Not at all Total SYVLIA-7 score (0-4 normal; 5-9 mild; 10-14 moderate; 15-21 severe): 0 Source: Developed by Drs. Keenan Allen, Ava Lobo, Laron Jimenez and colleagues, with an educational miracle from [employer]. SYLVIA-7 Assessment Billing SYLVIA-7 Assessment Tool: SYLVIA-7 Assessment 15450 Review of Systems Const Denies chills and Denies fever(s) Eyes Denies blurry vision ENT Denies vertigo, Denies dizziness and Denies sore throat Card Denies chest pain at rest, Denies chest pain with activity, Denies diaphoresis, Denies dyspnea and Denies dyspnea on exertion Resp Denies cough, Denies dyspnea, Denies dyspnea on exertion and Denies wheezing GI Denies abdominal pain, Denies melena, Denies hematochezia, Denies constipation, Denies diarrhea and Denies loose stools Denies hematuria Musc Reports back pain Skin/Breast Denies lesions Neuro Denies vertigo and Denies dizziness Psych Denies anxiety, Denies depression, Denies homicidal ideation, Denies suicidal ideation and Denies other (substance abuse) Aller/Immun Denies wheezing Physical exam (Primary Care) Vital Signs: Last Vital Signs Pulse 71 12/31/23 10:21 BP 120/68 12/31/23 10:21 Pulse Ox 98 12/31/23 10:21 Oxygen Delivery Method Room Air 12/31/23 10:21 BMI result Body Mass Index 32.3 Tobacco/Smoking Status: Tobacco use Status Tobacco use date assessed 12/31/23 12/31/23 10:26 Patient Tobacco Use Status Never used Tobacco 12/31/23 10:21 e-Cigarette/Vaping Use Never Used 12/31/23 10:21 PHQ-9: PHQ-9 Score PHQ-9: Total score 1 12/31/23 10:36 Depression Screening Interpretation: Negative Thrive Assessment: Date of Thrive Assessment Date Thrive assessed 12/31/23 12/31/23 10:36 Currently or been in a relationship where the following occur: no concerns reported Const General: cooperative Nutritional Appearance: obese Orientation/consciousness: patient oriented x3 HENMT Other: cerumen noted bilat, after ear lavage TMs easily seen Head: Yes normal to inspection, Yes normocephalic and Yes atraumatic Eyes General: appearance normal, both eyes and all related structures Alignment and Position: alignment normal and position normal Neck Neck: Yes normal visual inspection and Yes no lymphadenopathy Thyroid: Thyroid normal Resp Effort & Inspection: normal respiratory effort Auscultation: clear to auscultation bilaterally Cardio Rate: regular rate Rhythm: regular rhythm Heart sounds: S1 normal heart sound present, S2 normal heart sound present and no murmurs GI Other: small umbilical hernia Palpation (GI): Soft to palpation and nontender Auscultation: normal bowel sounds Male General Exam: Yes normal external exam Penis: normal penis Scrotum: scrotum normal, testes descended bilaterally and no inguinal hernias Testes: no testicular mass Skin Rashes: no rashes Neuro General: patient oriented x3, moves all extremities, no focal motor deficits and deep tendon reflexes 2+ bilaterally Romberg Test: Negative Psych Appearance: grossly normal Mental Status: mental status grossly normal Speech and movement: Normal speech and movement present Affect: normal affect Attitude: cooperative Thought process: Normal thought process present Thought content: Normal thought content present Insight: Good insight present (Psych) Judgement: Good judgement present (Psych) Office Procedures Cerumen Removal From which ear canal was the cerumen removed: bilateral Removal: irrigation Notes: patient tolerated procedure well, no complications and ear canal clear [id number] Irrigation/Lavage Assessment and Plan Assessment & Plan (1) Physical exam: Code(s): Z00.00 - Encounter for general adult medical examination without abnormal findings Plan: Labs ordered (2) Cerumen impaction: Code(s): H61.20 - Impacted cerumen, unspecified ear Qualifiers: Laterality: bilateral Qualified Code(s): H61.23 - Impacted cerumen, bilateral Plan: clean (3) Lumbar radiculitis: Code(s): M54.16 - Radiculopathy, lumbar region Plan: dexamethasone taper sent, will contact me with any ongoing symptoms Plan The patient agreed to the use of a medical records tech for this encounter. Scribed for AMANDA Bustamante by Sharda Gentile medical records tech, on 12/31/2023 at 10:40 EST. Orders: Orders Comprehensive [place]. Panel Fast Today Z00.00 - Encounter for general adult medical examination without abnormal findings TSH reflex Free T4 Today Z00.00 - Encounter for general adult medical examination without abnormal findings Complete Blood Count Auto Diff Today Z00.00 - Encounter for general adult medical examination without abnormal findings UA CC w/rflx Micro + Cult Today Z00.00 - Encounter for general adult medical examination without abnormal findings Lipid Panel Today Z00.00 - Encounter for general adult medical examination without abnormal findings Medications: New dexamethasone 4 mg orally 1 tab 3 times a day for 3 days, 1 tab twice a day for 3 days, 1 tab daily for 3 days; 9 days 18 tabs 0RF Coding Level of Care Code Est Pt Prev Care 40-64y(29389) Diagnoses Physical exam Z00.00 Bilateral impacted cerumen H61.23 Laterality: bilateral Lumbar radiculitis M54.16 CPT Codes Office Procedure - CPT: 15653-Plf Irrigation/Lavage ([id number]) Additional Codes SYLVIA-7 Assessment Billing - SYLVIA-7 Assessment Tool: SYLVIA-7 Assessment 39613 ([id number])
== END 2023-12-31 11:12 | disposition home or self-care (01) ==
PROVIDERS: PCP Nurse Practitioner Family; Visit Provider Nurse Practitioner Family
DX: Z00.00 Encounter for general adult medical examination without abnormal findings (principal); H61.23 Impacted cerumen, bilateral; M54.16 Radiculopathy, lumbar region
CPT/HCPCS: 69209; 99396

== ENCOUNTER 2024-01-14 11:10 | Outpatient (AMB) | payer BC, SELFPAY ==
--- NOTE | 2024-01-14 11:29 | A.OFFVIS_ITS ---
Intake Intake Visit Reasons: PSA Follow Up(set) Intake Note: Patient presents today for a follow-up on PSA Meds- None Allergies to Antibiotic- No Known Allergies Blood Thinner- None Truck Driving Required: No Accompanied by: Self / Same As Patient Allergies No Known Allergies [No Known Allergies*] Allergy (Verified 01/14/24 11:30) HPI HPI Comments History of Present Illness Details Keenan is a very pleasant male. They are a patient of Dr Ramos. They are seen in the office today for the following urologic conditions. - prostate cancer - erectile dysfunction secondary to radi ation Has completed external beam radiation at [facility] Current PSA low Continue to follow Q three-month for the 1st year Has concerns regarding erectile dysfunction 4m f/u PSA Prostate cancer:? Initial management radical prostatectomy 2018 unfavorable intermediate moderate volume ? Slowly rising PSA following radical prostatectomy ??. ? Prostate cancer was diagnosed?Dec 2017 Dr Cooper.? 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 The Alicia grade is?Left side 4 of 6 cores positive ?, 4+3 = 7 x 2 - 60%, 40%.? TNM Classification of Malignant Tumours (TNM)?T1c.? The D'Sudeep (NCCN) risk category is?Intermediate Risk (PSA 10-20, Gl 7, T2) ?- Group 3.? Initial therapy included?Primary treatment, Prostatectomy (RRP/Robotic) - [facility].? Recent labs included?12/28 0.05 ?- ?04/27 0.06, 09/27 0.07, 12/29 0.07, 12/31 0.09, 07/31 0.09, 01/29 0.11, 12/02 <0.1 PFSH Medical History Chronic radicular pain of lower back History of radiation therapy Elevated cholesterol Post-COVID chronic decreased mobility and endurance Nerve root compression Lumbar radiculitis Tubular adenoma Prostate CA Osteoarthritis HTN (hypertension) Surgical History History of knee surgery H/O colonoscopy Hx of prostate biopsy Hx of cystoscopy History of prostatectomy Family History Father History of heart attack Mother No problems noted. Sister Breast cancer Daughter Mental health disorder Social History Housing: House Alcohol intake: current Alcohol intake frequency: a few times a month Patient Tobacco Use Status: Never used Tobacco e-Cigarette/Vaping Use: Never Used Second Hand Smoke Exposure: No service: No Current occupational status: employed Current occupation: [employer] Current occupational exposures/hazards: Yes Cognitive needs: No Hearing needs: No Vision needs: No Review of Systems Const Denies chills and Denies fever(s) Card Reports no additional complaints and Denies syncope Resp Denies cough GI Denies abdominal pain and Denies heartburn Reports as per HPI and Denies change in libido Neuro Denies syncope Psych Denies change in libido Endo Denies change in libido Physical Exam Const General: cooperative, healthy appearing, comfortable and no acute distress Orientation/consciousness: patient oriented x3 HEENT Face and sinus: Yes normal facial exam Mouth: moist mucous membranes Neck Neck: Yes normal visual inspection, Yes full ROM and Yes trachea midline Chest Chest palpation & inspection: normal inspection of the chest Resp Effort & Inspection: normal respiratory effort, able to speak in complete sentences and no respiratory distress GI Inspection: Yes normal to inspection Back/Spine/Pelvis Cervical Spine: normal cervical lordosis Thoracic/Lumbar Spine: thoracic and lumbar spine normal to inspection Skin General skin exam: no rashes or lesions noted Neuro General: patient oriented x3, gait normal, tone normal and moves all extremities Extrem General: Yes normal to inspection and Yes capillary refill normal Assessment & Plan Assessment & Plan (1) Erectile dysfunction due to and not concurrent with radiation therapy: Code(s): N52.35 - Erectile dysfunction following radiation therapy Plan Three-month follow-up PSA Trial tadalafil daily Orders: Orders Prostate Specific Antigen 3 Months R97.21 - Rising PSA following treatment for malignant neoplasm of prostate Medications: New tadalafil take daily 5 mg PO DAILY 90 tabs 0RF sexual activity 90 days R97.21 - Rising PSA following treatment for malignant neoplasm of prostate Patient Instructions: Imaging studies, laboratory and physical exam results were discussed and reviewed in detail. No major barriers to patient understanding were identified. An opportunity to ask questions regarding the treatment plan was provided. All questions were answered. The patient expressed understanding and agreement with the above treatment plan. The patient is aware they should contact our office by phone for worsening of their current condition or the appearance of new urologic symptoms. Compliance is encouraged with any medications and followup testing that is ordered. It is a privilege to participate in the urologic care of your patient. If you have any questions or concerns regarding treatment for the above conditions, or other urologic issues, please do not hesitate to contact me. The office telephone contact is [phone]. This note is constructed using voice recognition software. While every effort has been made to ensure accuracy mainspring fabrication supervisor errors may have been included. Yours sincerely, Dr Henry Rouse MD, [facility] - Urology Providers of Expert, Compassionate Care for the Genitourinary System Coding Level of Care Code Est Pt Level 4 (19018) Diagnoses Erectile dysfunction due to and not concurrent with radiation therapy N52.35
== END 2024-01-14 11:51 | disposition home or self-care (01) ==
PROVIDERS: PCP Nurse Practitioner Family; Visit Provider Urology
DX: N52.35 Erectile dysfunction following radiation therapy (principal)
CPT/HCPCS: 99214

== ENCOUNTER → 2024-01-14 11:10 | Outpatient (BNVA) | payer BC, SELFPAY | PROVIDERS: PCP Nurse Practitioner Family; Visit Provider Urology ==

== ENCOUNTER 2024-03-23 11:08 | Outpatient (AMB) | payer BC, SELFPAY ==
--- NOTE | 2024-03-23 11:17 | A.OFFPC_ITS ---
Vital Signs 03/23/24 11:18 Height 5 ft 10 in Weight 228 lb BMI 32.7 BP 110/70 Blood Pressure Location Rt brachial Position Sitting Pulse 79 Pulse Source Pulse Oximeter Pulse Oximetry (%) 98 Oxygen Delivery Method Room Air Intake Visit Reasons: Discuss referral to Clerk Intake Note: Patient here to discuss a referral to see a foreclosure specialist Allergies No Known Allergies [No Known Allergies*] Allergy (Verified 03/23/24 11:37) Medication List - Last Reconciled 03/23/24 by AMANDA Martin lisinopril 40 mg PO DAILY rosuvastatin 10 mg PO DAILY Tobacco use date assessed: 12/31/23 Dental Screening Dental Screen Date: 12/31/23 HPI Discuss referral to Clerk HPI Details Lower back pain: Pt reports that his pain has improved. He is not currently having radicular symptoms down his lower extremitires. Will continue to monitor and will order MRI (last MRI was in 2019) and refer to spine center if pain worsens. Denies any signs of cauda equina. [facility] Medical History Chronic radicular pain of lower back History of radiation therapy Elevated cholesterol Post-COVID chronic decreased mobility and endurance Nerve root compression Lumbar radiculitis Tubular adenoma Prostate CA Osteoarthritis HTN (hypertension) Surgical History History of knee surgery H/O colonoscopy Hx of prostate biopsy Hx of cystoscopy History of prostatectomy Family History Father History of heart attack Mother No problems noted. Sister Breast cancer Daughter Mental health disorder Social History Housing: House Alcohol intake: current Alcohol intake frequency: a few times a month Patient Tobacco Use Status: Never used Tobacco e-Cigarette/Vaping Use: Never Used Second Hand Smoke Exposure: No service: No Current occupational status: employed Current occupation: [employer] Current occupational exposures/hazards: Yes Cognitive needs: No Hearing needs: No Vision needs: No Questionnaire Thrive Questionnaire Date Thrive assessed: 12/31/23 SYLVIA-7 AMB Questionnaire SLYVIA-7 Date SYLVIA - 7 assessed: 12/31/23 Source: Developed by DrsYamini Allen, Ava Lobo, Laron Jimenez and colleagues, with an educational miracle from [employer]. Review of Systems Const Reports as per HPI Physical exam (Primary Care) Vital Signs: Last Vital Signs Pulse 79 03/23/24 11:18 BP 110/70 03/23/24 11:18 Pulse Ox 98 03/23/24 11:18 Oxygen Delivery Method Room Air 03/23/24 11:18 BMI result Body Mass Index 32.7 Tobacco/Smoking Status: Tobacco use Status Tobacco use date assessed 12/31/23 03/23/24 11:21 Patient Tobacco Use Status Never used Tobacco 03/23/24 11:21 e-Cigarette/Vaping Use Never Used 03/23/24 11:21 Thrive Assessment: Date of Thrive Assessment Date Thrive assessed 12/31/23 03/23/24 11:21 Const General: cooperative Orientation/consciousness: patient oriented x3 Resp Effort & Inspection: normal respiratory effort Auscultation: clear to auscultation bilaterally Cardio Rate: regular rate Rhythm: regular rhythm Heart sounds: S1 normal heart sound present and S2 normal heart sound present Back/Spine/Pelvis Other: no pain or radicular symptoms with heel and toe walking Neuro General: patient oriented x3 Psych Appearance: grossly normal Mental Status: mental status grossly normal Speech and movement: Normal speech and movement present Affect: normal affect Attitude: cooperative Thought process: Normal thought process present Thought content: Normal thought content present Insight: Good insight present (Psych) Judgement: Good judgement present (Psych) Assessment and Plan Assessment & Plan (1) Lumbar radiculitis: Code(s): M54.16 - Radiculopathy, lumbar region Plan: pt reports no symptoms currently, it's been over 2 weeks now . Will cont to monitor. Plan The patient agreed to the use of a medical donation professional for this encounter. Scribed for AMANDA Bustamante by Sharda Gentile medical donation professional, on 03/23/2024 at 11:35 EST. Coding Level of Care Code Est Pt Level 3 (91457) Diagnoses Lumbar radiculitis M54.16
[2024-03-23 11:18] VITALS: BP 110/70; PULSE 79; O2SAT 98; BMI 32.7
== END 2024-03-23 13:34 | disposition home or self-care (01) ==
PROVIDERS: PCP Nurse Practitioner Family; Visit Provider Nurse Practitioner Family
DX: M54.16 Radiculopathy, lumbar region (principal)
CPT/HCPCS: 99213

== ENCOUNTER 2024-04-11 08:06 | Outpatient (REF) | payer BC, SELFPAY ==
[2024-04-11 10:19] LABS: MANUAL DIFF FLAG NO
[2024-04-11 10:23] LABS: Appearance Urine Turbid; Color Urine Yellow; Glucose Urine UA Negative (Negative); Leukocyte Esterase Urine Negative (Negative); Nitrite Urine Negative (Negative); PH 5.5 (5.0-9.0); Specific Gravity - Urine >= 1.030 (1.005-1.025); Urine Blood Negative (Negative); Urine Ketones Trace mg/dL (Negative); Urine Protein Trace mg/dL (Neg-Trace)
[2024-04-11 10:40] LABS: Basophils Percent Auto 0.8 % (0-2); Eosinophils Absolute Auto 0.3 X10*3/uL (0.0-0.4); Eosinophils Percent Auto 5.8 % (0-4); Hematocrit 43.5 % (42.0-52.0); Hemoglobin 14.5 g/dl (14.0-18.0); Imm Gran Abs Auto 0.02 X10*3/uL (0.00-0.03); Imm Gran Pct Auto 0.4 % (0.0-0.4); Lymphocytes Absolute Auto 1.1 X10*3/uL (1.2-4.9); Lymphocytes Percent Auto 22.1 % (20-40); Mean Corpuscular HGB Conc 33.3 g/dl (31.0-36.0); Mean Corpuscular Hemoglobin 31.6 pg (27.0-33.0); Mean Corpuscular Volume 94.8 fL (80.0-98.0); Mean Platelet Volume 10.4 fL (9.4-12.4); Monocytes Absolute Auto 0.7 X10*3/uL (0.1-1.2); Monocytes Percent Auto 13.1 % (2-11); Neutrophils Absolute Auto 2.9 x10*3/uL (2.0-8.3); Neutrophils Percent Auto 57.8 % (45-73); Platelet Count 260 X10*3/uL (160-400); Red Blood Count 4.59 X10*6/uL (4.60-5.80); Red Cell Distribution Width 12.9 % (11.0-16.0)
[2024-04-11 11:12] LABS: Prostate Specific Antigen < 0.10 ng/mL (<0.05-4.0)
[2024-04-11 11:27] LABS: Alanine Aminotransferase 20 U/L (0-40); Albumin Level 3.8 g/dL (3.5-5.0); Alkaline Phosphatase 88 U/L (39-117); Anion Gap 11 (12-20); Aspartate Amino Transferase 16 U/L (5-37); Bilirubin Total 0.3 mg/dL (0.0-1.0); Blood Urea Nitrogen 14 mg/dL (9-16); Calcium 9.4 mg/dL (8.4-10.2); Carbon Dioxide 28 mmol/L (22-29); Chloride 106 mmol/L (96-108); Cholesterol 178 mg/dL (<200); Estimated Glomerular Filt Rate > 60; Glucose Fasting 104 mg/dL (60-99); HDL Cholesterol 43 mg/dL (>40); Iron 68 mcg/dL (45-160); LDL Cholesterol Calculated 112 mg/dL (<100); Percent Iron Saturation 23 % (15-50); Potassium 4.1 mmol/L (3.3-5.1); Sodium 141 mmol/L (135-145); Total Iron Binding Capacity 299 mcg/dL (228-428); Total Protein 6.6 g/dL (6.5-8.0); Triglycerides 115 mg/dL (<150); Unsaturated Iron Binding 231 ug/dL
[2024-04-11 11:31] LABS: Ferritin 31 ng/mL (20-250); TSH reflex Free T4 1.08 uIU/mL (0.32-4.0)
[2024-04-11 11:50] LABS: Folate 7.6 ng/mL (> or = 4.0); Vitamin B12 298 pg/mL (200-900)
== END 2024-04-11 08:07 | disposition home or self-care (01) ==
LOC: HO.HMGCLDS 08:06
PROVIDERS: PCP Nurse Practitioner Family; Referring Provider Urology; Visit Provider Nurse Practitioner Family
DX: D64.9 Anemia, unspecified (principal); Z12.5 Encounter for screening for malignant neoplasm of prostate; Z00.00 Encounter for general adult medical examination without abnormal findings; R97.21 Rising PSA following treatment for malignant neoplasm of prostate
CPT/HCPCS: 36415; 80053; 80061; 81003; 82607; 82728; 82746; 83540; 84153; 84443; 85025

== ENCOUNTER 2024-04-15 10:38 | Outpatient (AMB) | payer BC, SELFPAY ==
--- NOTE | 2024-04-15 10:39 | MHC.OFFVIS ---
Intake Visit Reasons: 3m/PSA(set) Intake Note: Patient is Present for Telephone Follow Up For Urology Med: None Antibiotic Allergy:None Blood Thinner: None Allergies No Known Allergies [No Known Allergies*] Allergy (Verified 03/23/24 11:37) HPI Comments Details: Keenan is a very pleasant male. They are a patient of Dr Ramos. They are seen in the office today for the following urologic conditions. - prostate cancer - erectile dysfunction secondary to radiation Telemedicine Evaluation 15 min Consultation [facility] [employer] Video PSA remains nondetectable PSA 05/02 <0.1 Retry tadalafil 5 mg daily. Prescription sent to [facility]. Good Rx coupon for $36 Prostate cancer:? Initial management radical prostatectomy 2017 unfavorable intermediate moderate volume - EXBRT for rising PSA 08/01 ? Slowly rising PSA following radical prostatectomy 08/01 completed salvage external beam radiation to prostate bed Dr Sander Stephenson 6600 Gy 33 fraction ??. ? Prostate cancer was diagnosed?Dec 2017 Dr Cooper.? 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 The [place] grade is?Left side 4 of 6 cores positive ?, 4+3 = 7 x 2 - 60%, 40%.? TNM Classification of Malignant Tumours (TNM)?T1c.? The D'Sudeep (NCCN) risk category is?Intermediate Risk (PSA 10-20, Gl 7, T2) ?- Group 3.? Initial therapy included?Primary treatment, Prostatectomy (RRP/Robotic) - [facility].? Recent labs included?12/28 0.05 ?- ?04/27 0.06, 09/27 0.07, 12/29 0.07, 12/31 0.09, 07/31 0.09, 01/29 0.11, 12/02 <0.1 PFSH Medical History Chronic radicular pain of lower back History of radiation therapy Elevated cholesterol Post-COVID chronic decreased mobility and endurance Nerve root compression Lumbar radiculitis Tubular adenoma Prostate CA Osteoarthritis HTN (hypertension) Surgical History History of knee surgery H/O colonoscopy Hx of prostate biopsy Hx of cystoscopy History of prostatectomy Family History Father History of heart attack Mother No problems noted. Sister Breast cancer Daughter Mental health disorder Social History Housing: House Alcohol intake: current Alcohol intake frequency: a few times a month Patient Tobacco Use Status: Never used Tobacco e-Cigarette/Vaping Use: Never Used Second Hand Smoke Exposure: No service: No Current occupational status: employed Current occupation: [employer] Current occupational exposures/hazards: Yes Cognitive needs: No Hearing needs: No Vision needs: No Review of Systems Const All systems reviewed & are unremarkable except as noted in HPI and below Reports no additional complaints Resp Reports no additional complaints GI Reports no additional complaints Reports as per HPI Musc Reports no additional complaints Physical Exam Telemedicine evaluation Appropriate responses Regular breathing rate and rhythm HEENT Head: Yes normal to inspection Ears: hearing grossly normal bilaterally Eyes General: appearance normal, both eyes and all related structures Neck Neck: Yes normal visual inspection Chest Chest palpation & inspection: normal inspection of the chest Resp Effort & Inspection: normal respiratory effort and able to speak in complete sentences Telehealth Telehealth Telehealth Platform: [facility] Location of provider rendering services: practice address Location of patient: address on file Patient Identification confirmed using: Name, : Yes Telehealth method: video Patient verbally consented to treatment: Yes Patient verbally consented to billing insurance company: Yes Patient informed of any privacy concerns related to visit: Yes Minutes spent on Phone/Video with Pt.: 15 Assessment & Plan Assessment & Plan (1) Erectile dysfunction due to and not concurrent with radiation therapy: Code(s): N52.35 - Erectile dysfunction following radiation therapy Category: Medical (2) Rising PSA following treatment for malignant neoplasm of prostate: Code(s): R97.21 - Rising PSA following treatment for malignant neoplasm of prostate Category: Medical Plan Four month follow-up PSA Orders: Orders Prostate Specific Antigen 4 Months R97.21 - Rising PSA following treatment for malignant neoplasm of prostate Medications: New tadalafil 5 mg PO DAILY 90 days 90 tabs 0RF sexual activity N52.35 - Erectile dysfunction following radiation therapy Patient Instructions: Imaging studies, laboratory and physical exam results were discussed and reviewed in detail. No major barriers to patient understanding were identified. An opportunity to ask questions regarding the treatment plan was provided. All questions were answered. The patient expressed understanding and agreement with the above treatment plan. The patient is aware they should contact our office by phone for worsening of their current condition or the appearance of new urologic symptoms. Compliance is encouraged with any medications and followup testing that is ordered. It is a privilege to participate in the urologic care of your patient. If you have any questions or concerns regarding treatment for the above conditions, or other urologic issues, please do not hesitate to contact me. The office telephone contact is [phone]. This note is constructed using voice recognition software. While every effort has been made to ensure accuracy cash applications analyst errors may have been included. Yours sincerely, Dr Henry Rouse MD, [facility] - Urology Providers of Expert, Compassionate Care for the Genitourinary System Coding Level of Care Code Tele Est Pt Level 4 (89406) Diagnoses Erectile dysfunction due to and not concurrent with radiation therapy N52.35 Rising PSA following treatment for malignant neoplasm of prostate R97.21
== END 2024-04-15 11:48 | disposition home or self-care (01) ==
LOC: HO.HUSH 10:38
PROVIDERS: PCP Nurse Practitioner Family; Visit Provider Urology
DX: N52.35 Erectile dysfunction following radiation therapy (principal); R97.21 Rising PSA following treatment for malignant neoplasm of prostate
CPT/HCPCS: 99214

== ENCOUNTER → 2024-04-15 10:38 | Outpatient (BNVA) | payer BC, SELFPAY | PROVIDERS: PCP Nurse Practitioner Family; Visit Provider Urology ==

== ENCOUNTER 2024-08-20 10:33 | Outpatient (REF) | payer BC, SELFPAY ==
[2024-08-20 12:44] LABS: MANUAL DIFF FLAG NO
[2024-08-20 12:47] LABS: Basophils Percent Auto 0.6 % (0-2); Eosinophils Absolute Auto 0.4 X10*3/uL (0.0-0.4); Eosinophils Percent Auto 5.1 % (0-4); Hematocrit 41.2 % (42.0-52.0); Hemoglobin 14.1 g/dl (14.0-18.0); Imm Gran Abs Auto 0.04 X10*3/uL (0.00-0.03); Imm Gran Pct Auto 0.6 % (0.0-0.4); Lymphocytes Absolute Auto 1.2 X10*3/uL (1.2-4.9); Mean Corpuscular HGB Conc 34.2 g/dl (31.0-36.0); Mean Corpuscular Hemoglobin 31.5 pg (27.0-33.0); Mean Corpuscular Volume 92.2 fL (80.0-98.0); Mean Platelet Volume 10.2 fL (9.4-12.4); Monocytes Absolute Auto 0.9 X10*3/uL (0.1-1.2); Monocytes Percent Auto 12.5 % (2-11); Neutrophils Absolute Auto 4.5 x10*3/uL (2.0-8.3); Neutrophils Percent Auto 64.2 % (45-73); Platelet Count 276 X10*3/uL (160-400); Red Blood Count 4.47 X10*6/uL (4.60-5.80); Red Cell Distribution Width 13.3 % (11.0-16.0)
[2024-08-20 13:00] LABS: Appearance Urine Clear; Color Urine Yellow; Glucose Urine UA Negative (Negative); Leukocyte Esterase Urine Negative (Negative); Nitrite Urine Negative (Negative); PH 5.5 (5.0-9.0); Specific Gravity - Urine 1.025 (1.005-1.025); Urine Blood Negative (Negative); Urine Ketones Negative (Negative); Urine Protein Negative (Neg-Trace)
[2024-08-20 13:29] LABS: Prostate Specific Antigen < 0.10 ng/mL (<0.05-4.0)
== END 2024-08-20 10:34 | disposition home or self-care (01) ==
LOC: HO.HMGCLDS 10:33
PROVIDERS: PCP Nurse Practitioner Family; Referring Provider Urology; Visit Provider Nurse Practitioner Family
DX: Z00.00 Encounter for general adult medical examination without abnormal findings (principal); E78.5 Hyperlipidemia, unspecified; I10 Essential (primary) hypertension; R97.21 Rising PSA following treatment for malignant neoplasm of prostate; Z12.5 Encounter for screening for malignant neoplasm of prostate
CPT/HCPCS: 36415; 81003; 84153; 85025

== ENCOUNTER 2024-08-27 10:49 | Outpatient (REF) | payer BC, SELFPAY ==
[2024-08-27 11:49] LABS: Basophils Percent Auto 0.6 % (0-2); Eosinophils Absolute Auto 0.4 X10*3/uL (0.0-0.4); Hematocrit 43.1 % (42.0-52.0); Hemoglobin 14.4 g/dl (14.0-18.0); Imm Gran Abs Auto 0.02 X10*3/uL (0.00-0.03); Imm Gran Pct Auto 0.3 % (0.0-0.4); Lymphocytes Absolute Auto 1.1 X10*3/uL (1.2-4.9); Lymphocytes Percent Auto 17.1 % (20-40); Mean Corpuscular HGB Conc 33.4 g/dl (31.0-36.0); Mean Corpuscular Hemoglobin 31.4 pg (27.0-33.0); Mean Corpuscular Volume 94.1 fL (80.0-98.0); Mean Platelet Volume 11.2 fL (9.4-12.4); Monocytes Absolute Auto 0.7 X10*3/uL (0.1-1.2); Monocytes Percent Auto 11.1 % (2-11); Neutrophils Absolute Auto 4.3 x10*3/uL (2.0-8.3); Neutrophils Percent Auto 64.9 % (45-73); Red Blood Count 4.58 X10*6/uL (4.60-5.80); Red Cell Distribution Width 13.2 % (11.0-16.0)
[2024-08-27 11:52] LABS: Platelet Count 200 X10*3/uL (160-400); White Blood Count 6.7 X10*3/uL (4.8-10.8)
[2024-08-27 12:24] LABS: Erythrocyte Sedimentation Rate 12 MM/HR (0-15)
[2024-08-27 12:25] LABS: Rheumatoid Factor < 13.0 IU/mL (<15.0)
[2024-08-27 12:27] LABS: Alanine Aminotransferase 22 U/L (0-40); Albumin Level 4.2 g/dL (3.5-5.0); Alkaline Phosphatase 94 U/L (39-117); Anion Gap 12 (12-20); Aspartate Amino Transferase 21 U/L (5-37); Bilirubin Total 0.4 mg/dL (0.0-1.0); Blood Urea Nitrogen 16 mg/dL (9-16); C Reactive Protein 0.57 mg/dL (< or = 0.50); Calcium 9.7 mg/dL (8.4-10.2); Carbon Dioxide 28 mmol/L (22-29); Chloride 104 mmol/L (96-108); Cholesterol 185 mg/dL (<200); Estimated Glomerular Filt Rate > 60; Glucose Fasting 96 mg/dL (60-99); HDL Cholesterol 51 mg/dL (>40); LDL Cholesterol Calculated 117 mg/dL (<100); Potassium 4.3 mmol/L (3.3-5.1); Sodium 140 mmol/L (135-145); Total Protein 7.3 g/dL (6.5-8.0); Triglycerides 89 mg/dL (<150)
[2024-08-29 14:28] LABS: Anti Nuclear Antibody Screen NEGATIVE (NEGATIVE)
[2024-08-29 19:53] LABS: Anti DNA DS Antibody <1 IU/mL; Antibody to SS-A Antigen <1.0 NEG AI (<1.0 NEG); Antibody to SS-B Antigen <1.0 NEG AI (<1.0 NEG); Cyclic Citrullinated Peptide <16 UNITS
[2024-08-31 16:08] LABS: DNAds, Crithidia Antibody Negative (Negative)
== END 2024-08-27 10:50 | disposition home or self-care (01) ==
LOC: HO.HMGCLDS 10:49
PROVIDERS: PCP Nurse Practitioner Family; Visit Provider Nurse Practitioner Family
DX: R79.89 Other specified abnormal findings of blood chemistry (principal); E78.5 Hyperlipidemia, unspecified
CPT/HCPCS: 36415; 80053; 80061; 85025; 85652; 86038; 86140; 86200; 86225; 86235; 86255; 86431

== ENCOUNTER 2024-09-10 09:01 | Outpatient (REF) | payer BC, SELFPAY ==
[2024-09-12 22:48] LABS: Lyme Abs Screen <0.90 index
[2024-09-13 18:44] LABS: A. Phagocytphilium DNA,RT-PCR NOT DETECTED (NOT DETECTED); Babesia Microti DNA, RT-PCR NOT DETECTED (NOT DETECTED); Borrelia Miyamotoi,DNA RT-PCR NOT DETECTED (NOT DETECTED); E.Chaffeensis DNA RT-PCR NOT DETECTED (NOT DETECTED); Lyme(Borrelia ssp)DNA RT-PCR NOT DETECTED (NOT DETECTED)
== END 2024-09-10 09:02 | disposition home or self-care (01) ==
LOC: HO.HMGCLDS 09:01
PROVIDERS: PCP Nurse Practitioner Family; Visit Provider Nurse Practitioner Family
DX: M25.50 Pain in unspecified joint (principal)
CPT/HCPCS: 36415; 86617; 86618; 87468; 87469; 87478; 87484; 87798

== ENCOUNTER 2024-10-05 08:36 | Outpatient (AMB) | payer BC, SELFPAY ==
--- NOTE | 2024-10-05 08:45 | A.OFFVIS_ITS ---
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 They are a patient of Dr Ramos. They are seen in the office today for the following urologic conditions. - prostate cancer - erectile dysfunction secondary to radiation PSA remains low Continue 4 month follow-up through next year PSA 05/02 <0.1, 09/01 <0.1 Tadalafil daily recommended Prostate cancer:? Initial management radical prostatectomy 2018 unfavorable intermediate moderate volume - EXBRT for rising PSA 08/01 ? Slowly rising PSA following radical prostatectomy 08/01 completed salvage external beam radiation to prostate bed Dr Sander Stephenson 6600 Gy 33 fraction ??. ? Prostate cancer was diagnosed?Dec 2017 Dr Cooper.? 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 The [place] grade is?Left side 4 of 6 cores positive ?, 4+3 = 7 x 2 - 60%, 40%.? TNM Classification of Malignant Tumours (TNM)?T1c.? The D'Sudeep (NCCN) risk category is?Intermediate Risk (PSA 10-20, Gl 7, T2) ?- Group 3.? Initial therapy included?Primary treatment, Prostatectomy (RRP/Robotic) - [facility].? Recent labs included?12/28 0.05 ?- ?04/27 0.06, 09/27 0.07, 12/29 0.07, 12/31 0.09, 07/31 0.09, 01/29 0.11, 12/02 <0.1 PFSH Medical History Chronic radicular pain of lower back History of radiation therapy Elevated cholesterol Post-COVID chronic decreased mobility and endurance Nerve root compression Lumbar radiculitis Tubular adenoma Prostate CA Osteoarthritis HTN (hypertension) Surgical History History of knee surgery H/O colonoscopy Hx of prostate biopsy Hx of cystoscopy History of prostatectomy Family History Father History of heart attack Mother No problems noted. Sister Breast cancer Daughter Mental health disorder Social History Housing: House Alcohol intake: current Alcohol intake frequency: a few times a month Patient Tobacco Use Status: Never used Tobacco e-Cigarette/Vaping Use: Never Used Second Hand Smoke Exposure: No service: No Current occupational status: employed Current occupation: [employer] Current occupational exposures/hazards: Yes Cognitive needs: No Hearing needs: No Vision needs: No Review of Systems Const Denies chills and Denies fever(s) Card Reports no additional complaints and Denies syncope Resp Denies cough GI Denies abdominal pain and Denies heartburn Reports as per HPI and Denies change in libido Neuro Denies syncope Psych Denies change in libido Endo Denies change in libido Physical Exam Const General: cooperative, healthy appearing, comfortable and no acute distress Orientation/consciousness: patient oriented x3 HEENT Face and sinus: Yes normal facial exam Mouth: moist mucous membranes Neck Neck: Yes normal visual inspection, Yes full ROM and Yes trachea midline Chest Chest palpation & inspection: normal inspection of the chest Resp Effort & Inspection: normal respiratory effort, able to speak in complete sentences and no respiratory distress GI Inspection: Yes normal to inspection Back/Spine/Pelvis Cervical Spine: normal cervical lordosis Thoracic/Lumbar Spine: thoracic and lumbar spine normal to inspection Skin General skin exam: no rashes or lesions noted Neuro General: patient oriented x3, gait normal, tone normal and moves all extremities Extrem General: Yes normal to inspection and Yes capillary refill normal Assessment & Plan Assessment & Plan (1) Prostate CA: Comment: 2018 unfavorable intermediate prostatectomy-radiation Code(s): C61 - Malignant neoplasm of prostate Category: Medical (2) Erectile dysfunction due to and not concurrent with radiation therapy: Code(s): N52.35 - Erectile dysfunction following radiation therapy Category: Medical Plan 4 month follow-up Orders: Orders Prostate Specific Antigen 4 Months R97.21 - Rising PSA following treatment for malignant neoplasm of prostate Medications: New tadalafil 5 mg PO DAILY 90 days 90 tabs 1RF sexual activity N52.35 - Erectile dysfunction following radiation therapy Patient Instructions: Imaging studies, laboratory and physical exam results were discussed and reviewed in detail. No major barriers to patient understanding were identified. An opportunity to ask questions regarding the treatment plan was provided. All questions were answered. The patient expressed understanding and agreement with the above treatment plan. The patient is aware they should contact our office by phone for worsening of their current condition or the appearance of new urologic symptoms. Compliance is encouraged with any medications and followup testing that is ordered. It is a privilege to participate in the urologic care of your patient. If you have any questions or concerns regarding treatment for the above conditions, or other urologic issues, please do not hesitate to contact me. The office telephone contact is [phone]. This note is constructed using voice recognition software. While every effort has been made to ensure accuracy financial reporting accountant errors may have been included. Yours sincerely, Dr Henry Rouse MD, [facility] - Urology Providers of Expert, Compassionate Care for the Genitourinary System Coding Level of Care Code Est Pt Level 3 (18074) Diagnoses Prostate CA C61 Erectile dysfunction due to and not concurrent with radiation therapy N52.35
== END 2024-10-05 09:42 | disposition home or self-care (01) ==
PROVIDERS: PCP Nurse Practitioner Family; Visit Provider Urology
DX: C61 Malignant neoplasm of prostate (principal); N52.35 Erectile dysfunction following radiation therapy
CPT/HCPCS: 99213

== ENCOUNTER → 2024-10-05 08:36 | Outpatient (BNVA) | payer BC, SELFPAY | PROVIDERS: PCP Nurse Practitioner Family; Visit Provider Urology ==

== ENCOUNTER 2025-01-14 08:33 | Outpatient (REF) | payer BC, SELFPAY ==
[2025-01-14 12:54] LABS: Prostate Specific Antigen < 0.10 ng/mL (<0.05-4.0)
== END 2025-01-14 08:34 | disposition home or self-care (01) ==
LOC: HO.HMGCLDS 08:33
PROVIDERS: PCP Nurse Practitioner Family; Visit Provider Urology
DX: R97.21 Rising PSA following treatment for malignant neoplasm of prostate (principal); Z12.5 Encounter for screening for malignant neoplasm of prostate
CPT/HCPCS: 36415; 84153

== ENCOUNTER 2025-01-24 10:49 | Outpatient (AMB) | payer BC, SELFPAY ==
[2025-01-24 10:58] VITALS: BP 120/78; PULSE 62; TEMP 36.6; O2SAT 98; BMI 31.6
--- NOTE | 2025-01-24 10:58 | A.OFFPC_ITS ---
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 lisinopril 40 mg PO DAILY rosuvastatin 10 mg PO DAILY tadalafil 5 mg PO DAILY 90 days Tobacco use date assessed: 01/24/25 Dental Screening Dental Screen Date: 01/24/25 Did you have a dental visit in the last 12 months?: Yes Did you have a dental problem in the last 6 months where you did not have access to dental care?: No Was dental information given to patient?: Patient has dentist HPI ANNUAL PE HPI Details History of Present Illness The patient is a 64-year-old male presenting for a physical exam and follow-up care. His medical history includes prostate cancer with a previous prostatectomy. His follow-up PSA levels remain undetectable at values below 0.10. The patient adheres to urologic care and follows up regularly. He has been engaging in increased physical activity and reports weight loss, both of which are positively influencing his health. He denies symptoms such as chest pain, respiratory difficulties, abdominal discomfort, urinary issues, or bowel irregularities. No recent suicidal or homicidal thoughts have been noted, and he reports no back pain at present. The notable concern during the visit is peripheral neuropathy experienced in the distal regions of the first MTP joints on both feet, plantar. Sensory testing with a monofilament indicates intact sensory perception. Despite this, the neuropathy poses some level of discomfort, primarily confined to the plantar regions of his feet. His colonoscopy check is up to date, and overall, his systemic examination remains stable with no new issues. Health Maintenance - Routine follow-up with a urologist for post-prostatectomy monitoring. - Colonoscopy is current and up to date. - Patient is more physically active and reports weight loss contributing to overall health improvement. Social History - Increased physical activity. - Active weight loss efforts contributin g to improved overall health. Review of Systems - Cardiovascular: Denies chest pain or d iscomfort. - Respiratory: Denies shortness of breat h. - Gastrointestinal: Denies blood in stoo l, constipation, diarrhea, or abdominal pain. - Genitourinary: Denies urinary issues. - Neurological: Peripheral neuropathy in bilateral feet, primarily involving the distal first MTP joints. - Psychiatric: Denies suicidal or homici romy ideation. Physical Exam General: Cooperative, healthy appearing, comfortable, no acute distress and well developed Orientation: Patient oriented x3 Limitations: No limitations Head: Normal to inspection neck: ? bilat palpable thyroid nodules Ears: Hearing grossly normal bilaterally, some cerumen noted bilaterally after ear lavage, TMs were easily seen Nose: Normal external nose present Face and sinus: Normal facial exam Eyes: Appearance normal, both eyes and all related structures Respiratory: Normal respiratory effort and able to speak in complete sentences. Clear to auscultation bilaterally Cardiovascular: Regular rate and rhythm. Normal S1 and S2 GI: Normal to inspection. Soft to palpation and nontender, except for a small umbilical hernia Skin: No rashes or lesions noted Neuro: Patient oriented x3, reports some neuropathy to the bilateral feet, mostly to the distal aspect on the first MTP joints, positive sensation with use of monofilament to bilateral feet Extremities: right foot, plantar aspect, 5th MTP joint region with large corn. Results - Labs: PSA levels below 0.10 Plan The visit includes monitoring the patient's prostate cancer status, with PSA levels remaining undetectable. Regular follow-up with his urologist is beth harrison. For neuropathy symptoms, future consideration for gabapentin is necessary if discomfort persists or worsens. Possible EMG testing could assist further evaluation. His active lifestyle and weight loss are positive trends requiring encouragement. Notable examination findings, such as the small umbilical hernia and ear examination results, are documented. Discussion Notes I reviewed with the patient the stable nature of his prostate cancer post- prostatectomy, emphasizing undetectable PSA levels as a positive result. We discussed the peripheral neuropathy he experiences and the potential future use of gabapentin if needed for symptom control. The consideration of EMG testing will be based on symptom progression. I encouraged maintaining his current physical activity and weight management regimen, as these positively impact his health. We also discussed his health maintenance, noting the current status of his colonoscopy. I answered his questions and reinforced the importance of his regular follow-up appointments. Patient Instructions - Continue follow-up with your urologist as planned. - Maintain current activity level and di etary habits for continued weight management. - Monitor neuropathy symptoms and report any significant changes. - Contact the office if there are any ne w symptoms or concerns. - Follow through with any scheduled appo intments and routine health screenings. [facility] Medical History Chronic radicular pain of lower back History of radiation therapy Elevated cholesterol Post-COVID chronic decreased mobility and endurance Nerve root compression Lumbar radiculitis Tubular adenoma Prostate CA Osteoarthritis HTN (hypertension) Surgical History History of knee surgery H/O colonoscopy Hx of prostate biopsy Hx of cystoscopy History of prostatectomy Family History Father History of heart attack Mother No problems noted. Sister Breast cancer Daughter Mental health disorder Social History Housing: House Alcohol intake: current Alcohol intake frequency: a few times a month Patient Tobacco Use Status: Never used Tobacco e-Cigarette/Vaping Use: Never Used Second Hand Smoke Exposure: No service: No Current occupational status: employed Current occupation: [employer] Current occupational exposures/hazards: Yes Cognitive needs: No Hearing needs: No Vision needs: No Questionnaire PHQ-9 Over the last 2 weeks, how often have you been bothered by any of the following problems? 1. Little interest or pleasure in doing things: not at all 2. Feeling down, depressed, or hopeless: not at all 3. Trouble falling or staying asleep, or sleeping too much: not at all 4. Feeling tired or having little energy: not at all 5. Poor appetite or overeating: not at all 6. Feeling bad about yourself - or that you are a failure or have let yourself or your family down: not at all 7. Trouble concentrating on things, such as reading the newspaper or watching television: not at all 8. Moving or speaking so slowly that other people could have noticed. Or the opposite - being so fidgety or restless that you have been moving around a lot more than usual: not at all 9. Thoughts that you would be better off or of hurting yourself in some way: not at all Total score: 0 Depression Screening Interpretation: Negative Depression Screening Done: Yes 29143 - PHQ-9 Billing: Yes Source: Developed by Drs. Keenan Allen, Ava Lobo, Laron Jimenez and colleagues, with an educational miracle from [employer]. Thrive Questionnaire Date Thrive assessed: 01/24/25 I am a: Patient What is your living situation today?: I have a steady place to live Within the past 12 months, did the food you bought not last and you didn't have the money to get more?: I choose not to answer this question Within the past 12 months, did you worry whether your food would run out before you got money to buy more?: Never true Do you have trouble paying for medicines?: No Do you have trouble getting transportation to medical appointments?: No Do you have trouble paying your heating and electricity bill?: No Do you have trouble taking care of your child, family member or friend?: No Do you have trouble with day-to-day activities such as bathing, preparing meals, shopping, managing finances, etc.?: No Are you currently unemployed and looking for a job?: No Are you interested in more education?: No Please select the resources that you would like help with: None Currently or been in a relationship where the following occur: No concerns reported THRIVE Score: 0 AUDIT C Alcohol Use Questionnaire (AUDIT-C) 1. How often do you have a drink containing alcohol?: 2-4 times a month 2. How many drinks containing alcohol do you have on a typical day when you are drinking?: 5 or 6 3. How often do you have six or more drinks on one occasion?: Less than monthly Total Score: 5 Score Reviewed/Action Taken: Yes SYLVIA-7 AMB Questionnaire SYLVIA-7 Date SYLVIA - 7 assessed: 01/24/25 Feeling nervous, anxious, or on edge: 0 = Not at all Not being able to stop or control worryin = Not at all Worrying too much about different things: 0 = Not at all Trouble relaxin = Not at all Being so restless that it is hard to sit still: 0 = Not at all Becoming easily annoyed or irritable: 0 = Not at all Feeling afraid as if something awful might happen: 0 = Not at all Total SYLVIA-7 score (0-4 normal; 5-9 mild; 10-14 moderate; 15-21 severe): 0 Source: Developed by Drs. Keenan Allen, Ava Lobo, Laron Jimenez and colleagues, with an educational miracle from [employer]. SYLVIA-7 Assessment Billing SYLVIA-7 Assessment Tool: SYLVIA-7 Assessment 55405 Physical exam (Primary Care) Vital Signs: Last Vital Signs Temp 97.8 F 01/24/25 10:58 Pulse 62 01/24/25 10:58 BP 120/78 01/24/25 10:58 Pulse Ox 98 01/24/25 10:58 BMI result Body Mass Index 31.6 Tobacco/Smoking Status: Tobacco use Status Tobacco use date assessed 01/24/25 01/24/25 11:05 Patient Tobacco Use Status Never used Tobacco 01/24/25 11:05 e-Cigarette/Vaping Use Never Used 01/24/25 11:05 PHQ-9: PHQ-9 Score PHQ-9: Total score 0 01/24/25 11:05 Depression Screening Interpretation: Negative Thrive Assessment: Date of Thrive Assessment Date Thrive assessed 01/24/25 01/24/25 11:05 Currently or been in a relationship where the following occur: No concerns reported Office Procedures Cerumen Removal From which ear canal was the cerumen removed: bilateral Removal: irrigation Notes: patient tolerated procedure well, no complications and ear canal clear 78321-[id number] Irrigation/Lavage Coding Level of Care Code Est Pt Prev Care 40-64y(94419) Diagnoses Physical exam Z00.00 Neuropathy G62.9 Thyroid nodule E04.1 Excessive cerumen in both ear canals H61.23 [place] of foot L84 CPT Codes Office Procedure - CPT: 71608-Uqo Irrigation/Lavage ([id number]) Additional Codes SYLVIA-7 Assessment Billing - SYLVIA-7 Assessment Tool: SYLVIA-7 Assessment 78613 ([id number]) PHQ-9 - 52926 - PHQ-9 Billing: Yes ([id number]) Assessment & Plan Assessment & Plan (1) Physical exam: Code(s): Z00.00 - Encounter for general adult medical examination without abnormal findings Category: Medical (2) Neuropathy: Code(s): G62.9 - Polyneuropathy, unspecified Category: Medical (3) Thyroid nodule: Comment: ? bilat Code(s): E04.1 - Nontoxic single thyroid nodule Category: Medical (4) Excessive cerumen in both ear canals: Code(s): H61.23 - Impacted cerumen, bilateral Category: Medical (5) [place] of foot: Code(s): L84 - Corns and callosities Category: Medical (6) [place] of foot: Code(s): L84 - Corns and callosities Category: Medical Plan . Orders: Orders Comprehensive [place]. Panel Fast Today Z00.00 - Encounter for general adult medical examination without abnormal findings UA CC w/rflx Micro + Cult Today Z00.00 - Encounter for general adult medical examination without abnormal findings Lipid Panel Today Z00.00 - Encounter for general adult medical examination without abnormal findings Vitamin B12 and Folate Today G62.9 - Polyneuropathy, unspecified Lyme IgG/IgM w/reflex to WB Today G62.9 - Polyneuropathy, unspecified US thyroid Today E04.1 - Nontoxic single thyroid nodule Complete Blood Count Auto Diff Today Z00.00 - Encounter for general adult medical examination without abnormal findings TSH reflex Free T4 Today Z00.00 - Encounter for general adult medical examination without abnormal findings Tick-borne Disease Molecular Today G62.9 - Polyneuropathy, unspecified Syphilis Screen Today G62.9 - Polyneuropathy, unspecified HIV Ab/Ag Today G62.9 - Polyneuropathy, unspecified Referrals Podiatry Referral L84 - Corns and callosities
== END 2025-01-24 13:51 | disposition home or self-care (01) ==
LOC: HO.HMCC 10:50
PROVIDERS: PCP Nurse Practitioner Family; Visit Provider Nurse Practitioner Family
DX: Z00.00 Encounter for general adult medical examination without abnormal findings (principal); G62.9 Polyneuropathy, unspecified; E04.1 Nontoxic single thyroid nodule; H61.23 Impacted cerumen, bilateral; L84 Corns and callosities

== ENCOUNTER → 2025-01-24 10:49 | Outpatient (BNVA) | payer BC, SELFPAY | PROVIDERS: PCP Nurse Practitioner Family; Visit Provider Nurse Practitioner Family | DX: Z00.01 Encounter for general adult medical examination with abnormal findings (principal); H61.23 Impacted cerumen, bilateral; G62.9 Polyneuropathy, unspecified; E04.1 Nontoxic single thyroid nodule; L84 Corns and callosities | CPT/HCPCS: 69209; 96127 ==

== ENCOUNTER 2025-02-01 15:21 | Outpatient (AMB) | payer BC, SELFPAY ==
--- NOTE | 2025-02-01 15:22 | MHC.OFFVIS ---
Intake Visit Reasons: 4 month follow-up labs tele Intake Note: Patient is present for 4M/LABS Urology Medication:TADALAFIL Antibiotic Allergy:NONE Blood Thinner:NONE Software Integrator Required: No Allergies No Known Allergies [No Known Allergies*] Allergy (Verified 02/01/25 15:22) HPI Comments Details: Keenan is a very pleasant male. They are a patient of Dr Ramos. They are seen in the office today for the following urologic conditions. 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 Initial management radical prostatectomy 2017 unfavorable intermediate moderate volume - EXBRT for rising PSA 08/01 ? Slowly rising PSA following radical prostatectomy 08/01 completed salvage external beam radiation to prostate bed Dr Sander Stephenson 6600 Gy 33 fraction ??. ? Prostate cancer was diagnosed?Dec 2017 Dr Cooper.? 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 The [place] grade is?Left side 4 of 6 cores positive ?, 4+3 = 7 x 2 - 60%, 40%.? TNM Classification of Malignant Tumours (TNM)?T1c.? The D'[place]ude[place] (NCCN) risk category is?Intermediate Risk (PSA 10-20, Gl 7, T2) ?- Group 3.? Initial therapy included?Primary treatment, Prostatectomy (RRP/Robotic) - [facility].? Recent labs included?12/28 0.05 ?- ?04/27 0.06, 09/27 0.07, 12/29 0.07, 12/31 0.09, 07/31 0.09, 01/29 0.11, 12/02 <0.1 PFS Medical History Chronic radicular pain of lower back History of radiation therapy Elevated cholesterol Post-COVID chronic decreased mobility and endurance Nerve root compression Lumbar radiculitis Tubular adenoma Prostate CA Osteoarthritis HTN (hypertension) Surgical History History of knee surgery H/O colonoscopy Hx of prostate biopsy Hx of cystoscopy History of prostatectomy Family History Father History of heart attack Mother No problems noted. Sister Breast cancer Daughter Mental health disorder Social History Housing: House Alcohol intake: current Alcohol intake frequency: a few times a month Patient Tobacco Use Status: Never used Tobacco e-Cigarette/Vaping Use: Never Used Second Hand Smoke Exposure: No service: No Current occupational status: employed Current occupation: [employer] Current occupational exposures/hazards: Yes Cognitive needs: No Hearing needs: No Vision needs: No Review of Systems Const All systems reviewed & are unremarkable except as noted in HPI and below Reports no additional complaints Resp Reports no additional complaints GI Reports no additional complaints Reports as per HPI Musc Reports no additional complaints Physical Exam Telemedicine evaluation Appropriate responses Regular breathing rate and rhythm HEENT Head: Yes normal to inspection Ears: hearing grossly normal bilaterally Eyes General: appearance normal, both eyes and all related structures Neck Neck: Yes normal visual inspection Chest Chest palpation & inspection: normal inspection of the chest Resp Effort & Inspection: normal respiratory effort and able to speak in complete sentences Telehealth Telehealth Telehealth Platform: [facility] Location of provider rendering services: practice address Location of patient: address on file Patient Identification confirmed using: Name, : Yes Telehealth method: video Patient verbally consented to treatment: Yes Patient verbally consented to billing insurance company: Yes Patient informed of any privacy concerns related to visit: Yes Minutes spent on Phone/Video with Pt.: 15 Assessment & Plan Assessment & Plan (1) Prostate CA: Comment: 2018 unfavorable intermediate prostatectomy-radiation Code(s): C61 - Malignant neoplasm of prostate Category: Medical (2) Erectile dysfunction due to and not concurrent with radiation therapy: Code(s): N52.35 - Erectile dysfunction following radiation therapy Category: Medical Plan PSA follow-up 4 month Orders: Orders Prostate Specific Antigen 4 Months C61 - Malignant neoplasm of prostate Patient Instructions: This note is constructed using voice recognition software. While every effort has been made to ensure accuracy tipple boss errors may have been included. Imaging studies, laboratory and physical exam results were discussed and reviewed in detail. No major barriers to patient understanding were identified. An opportunity to ask questions regarding the treatment plan was provided. All questions were answered. The patient expressed understanding and agreement with the above treatment plan. The patient is aware they should contact our office by phone for worsening of their current condition or the appearance of new urologic symptoms. Compliance is encouraged with any medications and followup testing that is ordered. It is a privilege to participate in the urologic care of your patient. If you have any questions or concerns regarding treatment for the above conditions, or other urologic issues, please do not hesitate to contact me. The office telephone contact is [phone]. Sincerely, Dr Henry Rouse MD, [facility] - Urology Compassionate Specialist Care for the Genitourinary System Coding Level of Care Code Tele Est Pt Level 3 (63771) Complex EM visit Add On G2211 Diagnoses Prostate CA C61 Erectile dysfunction due to and not concurrent with radiation therapy N52.35
== END 2025-02-01 16:15 | disposition home or self-care (01) ==
LOC: HO.HUSH 15:21
PROVIDERS: PCP Nurse Practitioner Family; Visit Provider Urology
DX: C61 Malignant neoplasm of prostate (principal); N52.35 Erectile dysfunction following radiation therapy
CPT/HCPCS: 99213

== ENCOUNTER 2025-06-05 08:21 | Outpatient (REF) | payer BC, SELFPAY ==
--- OUTSIDE RECORDS SUMMARY | 2025-06-05 08:31 | XMS_ITS | Patient Health Record ---
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 Yes Points 0 Interpretation Negative Tobacco use other than smoking: Question Answer Notes Are you an other tobacco user? No Plan Of Treatment Pending Test Test Name Order Date 26437-Gqwk Destruction, -10/05/2017 59600-Zrcg Destruction, -10/28/2017 08834-Chbi Destruction, -12/01/2017 97841- Debride <25 sq cm 11/06/2017 Insurance Providers Payer Name Payer Address Payer Phone Subscriber Number Group Number Insured Name Patient Relationship to Insured Coverage Start Date Coverage End Date [facility] All Others [address] [place] [address] [phone] [id number] Keenan Jurado Self - patient is the insured Medical (General) History Surgical History Surgery Date(Month/Year) right knee arthroscopy
--- OUTSIDE RECORDS SUMMARY | 2025-06-05 08:31 | XMS_ITS | Patient Health Record ---
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 Role Phone LETTY JUSTICE Primary Care Provider Sia Ramirez Unavailable [phone] Allergies No Known Allergies Reason For Referral No Information Medications Medication SIG (Take, Route, Frequency, Duration) Notes Start Date End Date Status Rosuvastatin Calcium 10 MG TAKE 1 TABLET BY MOUTH DAILY Diagnosis Unavailable Oral for 30 Active Lisinopril 40 MG TAKE 1 TABLET BY RHONDA TH DAILY Oral for 30 Active Social History Tobacco Use: Social History Observation Description Date Details (start date - stop date) Never Smoker NA - NA Tobacco Use/Smoking Question Answer Notes Patient is a nonsmoker Alcohol Screen Question Answer Notes Did you have a drink contain ing alcohol in the past year? Yes How often did you have a dri nk containing alcohol in the past year? Monthly or less (1 point) How many drinks did you have on a typical day when you were drinking in the past year? 1 or 2 drinks (0 point) How often did you have 6 or more drinks on one occasion in the past year? Never (0 point) Points 1 Interpretation Negative Section Notes: Nonsmoker, no sig alcohol Problems Problem Type SNOMED Code ICD Code Onset Dates Problem Status W/U Status Risk Notes Problem 111848322 Colon cancer screening (Z12.11) Active confirmed Problem Diverticular disease of colon (336444064) Diverticulosis of large intestine without perforation or abscess without bleeding (K57.30) Active confirmed Problem 323583648 History of colon polyps (Z86.010) Active confirmed Problem 283227872987591 Pre-procedural examination (Z01.818) Active confirmed Plan Of Treatment Pending Test Test Name Order Date Pathology 11/20/2023 Future Test Test Name Order Date COLONOSCOPY 02/10/2023 Insurance Providers Payer Name Payer Address Payer Phone Subscriber Number Group Number Insured Name Patient Relationship to Insured Coverage Start Date Coverage End Date [facility] [address] [place], [place] [phone] [id number] SIA MELISSA Self - patient is the insured Medical (General) History Medical History History ICD Code Hypertension Hx of prostate cance with longoria rgery as below---as of the 02/2023 OV his PSA has risen and is going back to [facility] and may need XRT Hyperlipidemia 2 small tubular adenomas removed in 12/29 18 with colonoscopy at [facility] Surgical History Surgery Date(Month/Year) Prostatectomy at [facility] 2019 Knee surgery right
[2025-06-05 10:08] LABS: MANUAL DIFF FLAG NO
[2025-06-05 10:18] LABS: Hematocrit 48.7 % (42.0-52.0); Hemoglobin 16.5 g/dl (14.0-18.0); Imm Gran Abs Auto 0.05 X10*3/uL (0.00-0.03); Imm Gran Pct Auto 0.8 % (0.0-0.4); Lymphocytes Absolute Auto 1.4 X10*3/uL (1.2-4.9); Mean Corpuscular HGB Conc 33.9 g/dl (31.0-36.0); Mean Corpuscular Hemoglobin 31.7 pg (27.0-33.0); Mean Corpuscular Volume 93.7 fL (80.0-98.0); NRBC Abs Auto 0.000 X10*3/uL (0.0-0.012); NRBC Pct Auto 0.0 /100WBC (0.0-0.2); Platelet Count 259 X10*3/uL (160-400); Red Blood Count 5.20 X10*6/uL (4.60-5.80); White Blood Count 6.6 X10*3/uL (4.8-10.8)
[2025-06-05 11:01] LABS: Syphilis Screen Nonreactive (Nonreactive)
[2025-06-05 11:02] LABS: Alanine Aminotransferase 20 U/L (0-40); Albumin Level 4.2 g/dL (3.5-5.0); Alkaline Phosphatase 85 U/L (39-117); Anion Gap 14 (12-20); Aspartate Amino Transferase 20 U/L (5-37); Blood Urea Nitrogen 15 mg/dL (9-16); Calcium 8.8 mg/dL (8.4-10.2); Carbon Dioxide 27 mmol/L (22-29); Chloride 104 mmol/L (96-108); Cholesterol 234 mg/dL (<200); Estimated Glomerular Filt Rate > 60; HDL Cholesterol 50 mg/dL (>40); Potassium 4.6 mmol/L (3.3-5.1); Sodium 140 mmol/L (135-145); Total Protein 7.3 g/dL (6.5-8.0); Triglycerides 161 mg/dL (<150)
[2025-06-05 11:06] LABS: HIV Num 1 0.32 S/CO (0.00-0.99)
[2025-06-05 11:08] LABS: Prostate Specific Antigen < 0.10 ng/mL (<0.05-4.0)
[2025-06-05 11:15] LABS: Appearance Urine Clear; Folate 9.1 ng/mL (> or = 4.0); Glucose Urine UA Negative (Negative); PH 6.0 (5.0-9.0); Specific Gravity - Urine 1.025 (1.005-1.025); Vitamin B12 269 pg/mL (200-900)
[2025-06-06 18:44] LABS: Lyme Abs Screen <0.90 index
[2025-06-06 22:23] LABS: A. Phagocytphilium DNA,RT-PCR NOT DETECTED (NOT DETECTED); Babesia Microti DNA, RT-PCR NOT DETECTED (NOT DETECTED); Borrelia Miyamotoi,DNA RT-PCR NOT DETECTED (NOT DETECTED); E.Chaffeensis DNA RT-PCR NOT DETECTED (NOT DETECTED); Lyme(Borrelia ssp)DNA RT-PCR NOT DETECTED (NOT DETECTED)
== END 2025-06-05 08:22 | disposition home or self-care (01) ==
LOC: HO.HMGCLDS 08:21
PROVIDERS: PCP Nurse Practitioner Family; Referring Provider Urology; Visit Provider Nurse Practitioner Family
DX: Z00.00 Encounter for general adult medical examination without abnormal findings (principal); C61 Malignant neoplasm of prostate; G62.9 Polyneuropathy, unspecified; Z12.5 Encounter for screening for malignant neoplasm of prostate
CPT/HCPCS: 36415; 80053; 80061; 81003; 82607; 82746; 84153; 84443; 85025; 86617; 86618; 86780; 87389; 87468; 87469; 87478; 87484; 87798

== ENCOUNTER 2025-07-14 15:14 | Outpatient (REF) | payer BC, SELFPAY ==
--- NOTE | ~2025-07-14 | US_ITS ---
EXAMINATION: US THYROID CLINICAL INFORMATION: Nontoxic single thyroid nodule COMPARISON: None available. TECHNIQUE: Linear transducer grayscale and color Doppler examination with attention to the region of the thyroid. FINDINGS: SIZE: Measurements of the thyroid lobes and nodules are given in sagittal, anteroposterior and transverse dimensions respectively. Right Thyroid Lobe: 5.2 x 1.8 x 1.6 cm, volume 7.8 mL. Parenchyma: The gland echotexture is heterogeneous. Thyroid vascularity is normal. Left Thyroid Lobe: 5.7 x 2.8 x 2.7 cm, volume 22.6 mL. Parenchyma: The gland echotexture is heterogeneous. Thyroid vascularity is normal. Isthmus: 1.0 cm in maximum AP dimension. Estimated total number of nodules greater than or equal to 1 cm: 4. [employer] nodules are described as follows: 1. Location: Midportion right thyroid lobe. Size: 1.8 x 1.0 x 1.2 cm, volume 1.1 mL. Nodule characteristics: Composition: Solid (2). Echogenicity: Isoechoic (1). Shape: Not taller than wide (0). Margins: Ill-defined (0). Echogenic Foci: None (0). ACR TI-RADS total points: 3 ACR TI-RADS category: 3 2. Location: Upper pole, left lobe. Size: 1.9 x 1.2 x 1.3 cm, volume 1.6 mL. Nodule characteristics: Composition: Solid (2). Echogenicity: Isoechoic (1). Shape: Not taller than wide (0). Margins: Ill-defined (0). Echogenic Foci: None (0). ACR TI-RADS total points: 3 ACR TI-RADS category: 3 3. Location: Midportion, left lobe. Size: 2.1 x 1.6 x 1.4 cm, volume 2.5 mL. Nodule characteristics: Composition: Solid (2). Echogenicity: Isoechoic (1). Shape: Taller than wide (3). Margins: Smooth (0). Echogenic Foci: Macrocalcifications (1). ACR TI-RADS total points: 7 ACR TI-RADS category: 5 4. Location: Lower pole, left lobe. Size: 1.3 x 0.8 x 1.1 cm, volume 0.6 mL. Nodule characteristics: Composition: Solid (2). Echogenicity: Isoechoic (1). Shape: Not taller than wide (0). Margins: Smooth (0). Echogenic Foci: None (0). ACR TI-RADS total points: 3 ACR TI-RADS category: 3 NODES: No lymphadenopathy is seen in the tissue surrounding the thyroid gland. US/US thyroid IMPRESSION: ACR TI RADS 5, nodule in the midportion left thyroid lobe. ACR TI-RADS 3 ACR TI-RADS RECOMMENDATION REFERENCE: Ultrasound-guided fine-needle aspiration, followup ultrasound, no further follow up. * TR1 (0 point) and TR2 (2 points): No FNA or follow up. * TR3 (3 points): FNA if more than or equal to 2.5 cm in maximum dimension, followup ultrasound in 1, 3 and 5 years if 1.5 to 2.4 cm in maximum dimension. * TR4 (4-6 points): FNA if more than or equal to 1.5 cm in maximum dimension, followup ultrasound in 1, 2, 3 and 5 years if 1 to 1.4 cm in maximum dimension. * TR5 (more than or equal to 7 points): FNA if more than or equal to 1 cm in maximum dimension, followup ultrasound every year for 5 years if 0.5 to 0.9 cm in maximum dimension. * TR3, TR4 or TR5 nodules that are below the size threshold for followup receive no follow up. Electronically signed by: Jono Abrams MD 07/14/2025 04:01 PM EDT
--- OUTSIDE RECORDS SUMMARY | 2025-07-14 15:28 | XMS_ITS | Patient Health Record ---
Author Organization [facility] Address [address] [place] [address] Care Team Providers Care Assembly Line Leader Name Role Phone LETTY JUSTICE Primary Care Provider Sia Ramirez Unavailable [phone] Allergies No Known Allergies Reason For Referral [...] Problem Status W/U Status Risk Notes Problem 546418232 Colon cancer screening (Z12.11) Active confirmed Problem Diverticular disease of colon (615571146) Diverticulosis of large intestine without perforation or abscess without bleeding (K57.30) Active confirmed Problem 685456099 History of colon polyps (Z86.010) Active confirmed Problem 894325289445259 Pre-procedural examination (Z01.818) Active confirmed Plan Of Treatment Pending Test Test Name Order Date Pathology 11/20/2023 Future Test Test Name Order Date COLONOSCOPY 02/10/2023 Insurance Providers Payer Name Payer Address Payer Phone Subscriber Number Group Number Insured Name Patient Relationship to Insured Coverage Start Date Coverage End Date [facility] [address] [place], [place] [id number] SIA MELISSA Self - patient is the insured Medical (General) History Medical History History ICD Code Hypertension Hx of prostate cance with longoria rgery as below---as of the 02/2023 OV his PSA has risen and is going back to [facility] and may need XRT Hyperlipidemia 2 small tubular adenomas removed in 12/29 18 with colonoscopy at [facility] Surgical History Surgery Date(Month/Year) Prostatectomy at [facility] 2019 Knee surgery right
--- OUTSIDE RECORDS SUMMARY | 2025-07-14 15:28 | XMS_ITS | Patient Health Record ---
Author Organization [facility] Address [address] [place] [address] Care Team Providers Care Clinical Nursing Coordinator Name Role Phone Giovanny Garcia MD Primary Care Provider Orestes Rodriguez Unavailable [phone] Reason For Referral No Information Social History [...] Treatment Pending Test Test Name Order Date [id number] Destruction, -10/05/2017 [id number]-Cozc Destruction, -10/28/2017 [id number]-Vito Destruction, -12/01/2017 [id number]- Debride <25 sq cm 11/06/2017 Insurance Providers Payer Name Payer Address Payer Phone Subscriber Number Group Number Insured Name Patient Relationship to Insured Coverage Start Date Coverage End Date [facility] All Others [address] [place] [address] [id number] Keenan Jurado Self - patient is the insured Medical (General) History Surgical History Surgery Date(Month/Year) right knee arthroscopy
== END 2025-07-14 15:15 | disposition home or self-care (01) ==
LOC: HO.HMGCX 15:14
PROVIDERS: PCP Nurse Practitioner Family; Visit Provider Nurse Practitioner Family
DX: E04.1 Nontoxic single thyroid nodule (principal)
CPT/HCPCS: 76536

== ENCOUNTER → 2025-07-14 15:19 | Outpatient (BNV) | payer BC, SELFPAY | PROVIDERS: PCP Nurse Practitioner Family; Visit Provider Radiology Diagnostic Radiology | DX: E04.2 Nontoxic multinodular goiter (principal) | CPT/HCPCS: 76536 ==

== ENCOUNTER 2025-11-01 08:41 | Outpatient (AMB) | payer BC, SELFPAY ==
--- OUTSIDE RECORDS SUMMARY | 2025-11-01 08:44 | XMS_ITS | Clinical Summary ---
Author Organization [facility] Address [address] [place] [address] Care Team Providers Care Associate Director Of Development Name Role Phone None, Pcp Primary Care Provider Venkat Ornelas MD Unavailable [phone] Allergies No known active allergies Medications rosuvastatin (CRESTOR) 10 MG tablet Take 1 tablet (10 mg total) by mouth daily. 02/08/2023 Active lisinopriL (PRINIVIL,ZESTR IL) 40 MG tablet Take 1 tablet (40 mg total) by mouth daily. 02/08/2023 Active tadalafiL (CIALIS) 20 MG tablet Take 1 tablet (20 mg total) by mouth daily as needed for erectile dysfunction. 10 tablet 3 02/12/2023 Active Active Problems Problem Noted Date Diagnosed Date Prostate cancer 05/28/2018 Malignant neoplasm of prostate 04/09/2018 Overview (04/09/2018): Added automatically from request for surgery [id number] Social History Tobacco Use Types Packs/Day Years Used Date Smoking Tobacco: Never Smokeless Tobacco: Never Alcohol Use Standard Drinks/Week Comments Yes 0 (1 standard drink = 0.6 oz pur e alcohol) monthly Sex and Gender Information Value Date Recorded Sex Assigned at Male 12/27/2018 8:15 AM EST Legal Sex Male 2:16 PM EDT Gender Identity Male 12/27/2018 8:15 AM EST Sexual Orientation Not on file Last Filed Vital Signs Vital Sign Reading Time Taken Comments Blood Pressure 128/70 05/29/2018 12:00 PM EDT Pulse 78 05/29/2018 12:00 PM EDT Temperature 36.7 C (98.1 F) 05/29/2018 12:00 PM EDT Respiratory Rate 18 05/29/2018 12:00 PM EDT Oxygen Saturation 97% 05/29/2018 12:00 PM EDT Inhaled Oxygen Concentration - - Weight 91.6 kg (202 lb) 05/28/2018 9:00 PM EDT Height 177 cm (5' 9.69 ) 05/28/2018 9:00 PM EDT Body Mass Index 29.25 05/28/2018 9:00 PM EDT Plan of Treatment Health Maintenance Due Date Last Done Comments Blood Pressure 1961 Lipid Panel 1961 SDM 1961 Depression Screening 1973 Hepatitis C Screening 1979 CT Colonography 2006 Colonoscopy 2006 Colorectal Cancer Screening 2006 FIT 2006 FOBT 2006 Multitarget Stool DNA (Cologuard) 2006 Sigmoidoscopy 2006 Pneumococcal Vaccine: 50+ Years (1 of 1 - PCV) 2011 Zoster Vaccine (1 of 2) 2011 PSA 04/21/2022 04/21/2020, 04/09, 12/27/2018, Additional history exists Prostate Cancer Screening 04/21/2022 COVID-19 Vaccine ( season) 2025 08/02/2022, 05/17/2022, 11/23/2021, Additional history exists Influenza Vaccine (#1) 2025 10/17/2020 DTaP,Tdap,and Td Vaccines (3 - Td or Tdap) 12/21/2025 12/21/2015, 12/21/2015 Meningococcal B Vaccines Aged Out No longer eligible based on patient's age to complete this topic Meningococcal Vaccines Aged Out No lo nger eligible based on patient's age to complete this topic Procedures Procedure Name Priority Date/Time Associated Diagnosis Comments PSA ULTRASENSITIVE Routine 04/21/2020 9: 45 AM EDT Malignant neoplasm of prostate from Last 3 Months or Most Recently Relevant to Health Maintenance Results * PSA Ultrasensitive (04/21/2020 9:45 AM EDT) PSA Ultrasensitive 0.10 0.00 - 4.00 ng/mL 04/23/2020 6:27 AM EDT [facility] Comment: INTERPRETIVE INFORMATION: PSA Ultra Sensitive After radical prostatectomy, the reference interval is less than 0.05 ng/mL if there is no residual disease. In healthy males without prostatectomy, the reference interval is 4.00 ng/mL or less. The lower limit of detection is 0.01 ng/mL. The Eric PSA electrochemiluminescent immunoassay was used. Results obtained with different assay methods or kits cannot be used interchangeably. The Eric PSA method is approved for use as an aid in the detection of prostate cancer when used in conjunction with a digital rectal exam in men age 50 and older. The Eric PSA method is also indicated for the serial measurement of PSA to aid in the prognosis and management of prostate cancer patients. Elevated PSA concentrations can only suggest the presence of prostate cancer until biopsy is performed. PSA concentrations can also be elevated in benign prostatic hyperplasia or inflammatory conditions of the prostate. PSA is generally not elevated in healthy men or men with nonprostatic carcinoma. Performed by [facility], [address] [place] [id number] [email or web address], Kevan Stephens MD, Lab. Director Blood specimen (specimen) Venipuncture / Unknown 04/21/2020 9:45 AM EDT 04/21/2020 9:47 AM EDT us Jose L Wakefield MD LAB BLOOD ORDERABLES Final Resu lt [facility] [address] [place] [address] from Last 3 Months or Most Recently Relevant to Health Maintenance Insurance [facility] Advance Directives * Full Code (Latest Code Status on File) Date Activated Date Inactivated Comments 05/28/2018 6:23 PM Care Teams Associate Director Of Development Relationship Specialty Start Date End Date None, Pcp, PCP - General 11/12/18 Venkat Thomas MD [address] [place] [address] Consulting Provider Hematology/Oncology 02/24/23
--- OUTSIDE RECORDS SUMMARY | 2025-11-01 08:44 | XMS_ITS | Patient Health Record ---
Author Organization [facility] Address [address] [place] [address] Care Team Providers Care Clinical Training Specialist Name Role Phone LETTY JUSTICE Primary Care Provider Sia Ramirez Unavailable [phone] Allergies No Known Allergies Reason For Referral No Information Medications Medication SIG (Take, Route, Frequency, Duration) Notes Start Date End Date Status Rosuvastatin Calcium 10 MG Tablet TAKE 1 TABLET BY MOUTH DAILY Diagnosis Unavailable Oral; Duration: 30 Active Lisinopril 40 MG Tablet TAKE 1 TABLET BY MOUTH DAILY Oral; Duration: 30 Active Social History Tobacco Use: Social History Observation Description Date Details (start date - stop date) Never Smoker NA - NA Social History Drugs/Alcohol: Social Info Question Answer Notes Alcohol Screen Did you have a drink containing alcohol in the past year? Yes How often did you have a drink containing alcohol in the past year? Monthly or less (1 point) How many drinks did you have on a typical day when you were drinking in the past year? 1 or 2 drinks (0 point) How often did you have 6 or more drinks on one occasion in the past year? 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 Section Notes: Nonsmoker, no sig alcohol Problems Problem Type SNOMED Code ICD Code Onset Dates Problem Status W/U Status Risk Notes Problem Colon cancer screening (213396622) Colon cancer screening (Z12.11) Active confirmed Problem Diverticular disease of colon (742564209) Diverticulosis of large intestine without perforation or abscess without bleeding (K57.30) Active confirmed Problem History of polyp of colon (situation) (046662664) History of colon polyps (Z86.010) Active confirmed Problem Pre-procedure evaluation check (489277938) Pre-procedural examination (Z01.818) Active confirmed Plan Of Treatment Pending Test Test Name Order Date Pathology 11/20/2023 Future Test Test Name Order Date COLONOSCOPY 02/10/2023 Insurance Providers Payer Name Payer Address Payer Phone Subscriber Number Group Number Insured Name Patient Relationship to Insured Coverage Start Date Coverage End Date [facility] [address] [place], [place] [id number] SIA MELISSA Self - patient is the insured Medical (General) History Medical History History ICD Code Hypertension Hx of prostate cance with longoria rosa as below---as of the 02/2023 OV his PSA has risen and is going back to [facility] and may need XRT Hyperlipidemia 2 small tubular adenomas removed in 12/29 18 with colonoscopy at [facility] Surgical History Surgery Date(Month/Year) Prostatectomy at [facility] 2019 Knee surgery right
--- OUTSIDE RECORDS SUMMARY | 2025-11-01 08:45 | XMS_ITS | Patient Health Record ---
Author Organization [facility] Address [address] [place] [address] Care Team Providers Care Police Officer Booking Name Role Phone Giovanny Garcia MD Primary Care Provider Orestes Vargas Unavailable [phone] Reason For Referral No Information Social History [...] Treatment Pending Test Test Name Order Date [id number]-Oyvd Destruction, -14 10/05/2017 [id number]-Cgkg Destruction, -10/28/2017 12313-Jzry Destruction, -12/01/2017 26202- Debride <25 sq cm 11/06/2017 Insurance Providers Payer Name Payer Address Payer Phone Subscriber Number Group Number Insured Name Patient Relationship to Insured Coverage Start Date Coverage End Date [employer] All Others [address] [place] [address] [id number] Keenan Jurado Self - patient is the insured Medical (General) History Surgical History Surgery Date(Month/Year) right knee arthroscopy
[2025-11-01 08:46] VITALS: BP 132/70; PULSE 73; O2SAT 98; BMI 33.8
--- NOTE | 2025-11-01 08:46 | MHC.OFFVIS ---
Vital Signs 11/01/25 08:46 Height 5 ft 10 in Weight 235 lb 7.259 oz BMI 33.8 BP 132/70 Blood Pressure Location Rt brachial Position Sitting Pulse 73 Pulse Source Pulse Oximeter Pulse Oximetry (%) 98 Oxygen Delivery Method Room Air Intake Visit Reasons: Nontoxic single thyroid nodule Intake Note: New patient internally referred by PCP for Nontoxic single thyroid nodule. Medical Billing Representative Required: No Accompanied by: Self / Same As Patient Allergies No Known Allergies (No Known Allergies*) Allergy (Verified 11/01/25 09:00) Medication List - Last Reconciled 11/01/25 by Keenan Riso MD lisinopril 40 mg PO DAILY rosuvastatin 10 mg PO DAILY tadalafil 5 mg PO DAILY 90 days HPI Comments Details: History of Present Illness The patient is a 65 year old male presenting for evaluation of thyroid nodules. The nodules were first diagnosed in July following a thyroid ultrasound ordered during a routine physical. He denies any difficulty swallowing, hoarseness, sensation of swelling in the neck, difficulty breathing when lying flat, or neck tenderness. He does report snoring. Regarding thyroid-related symptoms, he denies palpitations, tremors, significant weight loss, frequent bowel movements, bulging of the eyes, and blurred or double vision. He reports some weight gain, dry skin, and an itchy back. Past medical history is significant for prostate cancer, for which he underwent prostate removal and radiation therapy to his lower body approximately three years ago. He denies any history of head or neck irradiation. He has no personal history of thyroid biopsies. Family history is negative for thyroid cancer. His sister has an unspecified history of thyroid disease. His daughter has celiac disease. Medication History Medications Exercise Diet History Results - Imaging: FINDINGS: SIZE: Measurements of the thyroid lobes and nodules are given in sagittal, anteroposterior and transverse dimensions respectively. Right Thyroid Lobe: 5.2 x 1.8 x 1.6 cm, volume 7.8 mL. Parenchyma: The gland echotexture is heterogeneous. Thyroid vascularity is normal. Left Thyroid Lobe: 5.7 x 2.8 x 2.7 cm, volume 22.6 mL. Parenchyma: The gland echotexture is heterogeneous. Thyroid vascularity is normal. Isthmus: 1.0 cm in maximum AP dimension. Estimated total number of nodules greater than or equal to 1 cm: 4. Professor [employer] nodules are described as follows: 1. Location: Midportion right thyroid lobe. Size: 1.8 x 1.0 x 1.2 cm, volume 1.1 mL. Nodule characteristics: Composition: Solid (2). Echogenicity: Isoechoic (1). Shape: Not taller than wide (0). Margins: Ill-defined (0). Echogenic Foci: None (0). ACR TI-RADS total points: 3 ACR TI-RADS category: 3 2. Location: Upper pole, left lobe. Size: 1.9 x 1.2 x 1.3 cm, volume 1.6 mL. Nodule characteristics: Composition: Solid (2). Echogenicity: Isoechoic (1). Shape: Not taller than wide (0). Margins: Ill-defined (0). Echogenic Foci: None (0). ACR TI-RADS total points: 3 ACR TI-RADS category: 3 3. Location: Midportion, left lobe. Size: 2.1 x 1.6 x 1.4 cm, volume 2.5 mL. Nodule characteristics: Composition: Solid (2). Echogenicity: Isoechoic (1). Shape: Taller than wide (3). Margins: Smooth (0). Echogenic Foci: Macrocalcifications (1). ACR TI-RADS total points: 7 ACR TI-RADS category: 5 4. Location: Lower pole, left lobe. Size: 1.3 x 0.8 x 1.1 cm, volume 0.6 mL. Nodule characteristics: Composition: Solid (2). Echogenicity: Isoechoic (1). Shape: Not taller than wide (0). Margins: Smooth (0). Echogenic Foci: None (0). ACR TI-RADS total points: 3 ACR TI-RADS category: 3 NODES: No lymphadenopathy is seen in the tissue surrounding the thyroid gland. US/US thyroid IMPRESSION: ACR TI RADS 5, nodule in the midportion left thyroid lobe. ACR TI-RADS 3 - Labs: Thyroid function tests are normal. 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 Sister Breast cancer Daughter Mental health disorder Social History Housing: House Alcohol intake: current Alcohol intake frequency: a few times a month Patient Tobacco Use Status: Never used Tobacco e-Cigarette/Vaping Use: Never Used Second Hand Smoke Exposure: No service: No Current occupational status: employed Current occupation: [employer] Current occupational exposures/hazards: Yes Cognitive needs: No Hearing needs: No Vision needs: No Review of Systems Narrative Review of Systems - Constitutional: Reports weight gain. - HEENT: Denies difficulty swallowing, hoarseness, sensation of neck swelling, neck tenderness, bulging of the eyes, blurred or double vision. - Respiratory: Reports snoring. - Denies difficulty breathing when lying flat. - Cardiovascular: Denies palpitations. - Gastrointestinal: Denies frequent bowel movements. - Integumentary: Reports dry skin and an itchy back. - Denies hair loss. - Neurological: Denies tremors. - Endocrine: Denies cold intolerance. Physical Exam Exam Exam: Physical Exam - Neck: A nodule is palpable in the left mid-pole of the thyroid. - Heart: Auscultation performed, no abnormalities noted. - Lungs: Clear to auscultation bilaterally. - Extremities: No tremor observed on outstretched hands. Absence of Cushingoid features. Absence of acromegalic features. Neck exam reveals nl size thyroid about 15 gms. No thyroid nodules palpable. Heart S1 S2, Reg R/R. No M/R G. Skin exam reveals absence of vitiligo or acanthosis nigricans. Visual exam of foot performed. No ulcerations or open lesions. No inter digit maceration or fissuring. No onychomycosis, no callouses. Sensation intact to monofilament exam. Vibratory sensation is normal with 128 Hz tuning fork. Vital Signs: Last Vital Signs Pulse 73 11/01/25 08:46 BP 132/70 11/01/25 08:46 Pulse Ox 98 11/01/25 08:46 Oxygen Delivery Method Room Air 11/01/25 08:46 BMI result Body Mass Index 33.8 HEENT reveals absence of lid lag , stare or proptosis or eyebrow loss. Thyroid gland measure 15 gms . There was a left middle pole nodule palpated about 2 cm There is no cervical adenopathy palpated. Lungs CTA. Heart S1, S2 Reg R/R -M/R/G. Abdominal exam benign. Skin exam reveals absence of dryness or thyroid dermopathy or vitiligo. Nail exam reveals absence of thyroid acropachy or oncholysis. Neurologic exam reveals 2+ reflexes . Muscle Strength is 5/5 proximally. There are no tremors in upper extremities. Assessment & Plan Assessment & Plan (1) Thyroid nodule: Code(s): E04.1 - Nontoxic single thyroid nodule Category: Medical Plan: This is a 65-year-old white male with a history of multinodular goiter with dominant left midpole nodule deemed to be moderately suspicious on ultrasound. Patient is clinically and biochemically euthyroid Plan is for FNA of left midpole nodule to be performed by Dr. Cosme in the next couple of months Plan Assessment and Plan Patient was informed and verbally consented to the use of an ambient scribe for clinic note documentation during this visit. Discussion Notes I explained to the patient that his ultrasound shows multiple nodules on his thyroid, a condition called multinodular goiter. I reassured him that 95% of thyroid nodules are benign and typically slow-growing. However, the largest nodule on his left side has features that make it moderately suspicious (TI-RADS 5), and a fine-needle aspiration (FNA) biopsy is recommended to determine its nature. I described the biopsy procedure and the possible outcomes (benign, malignant, or indeterminate). I strongly recommended that he have the biopsy performed by my colleague, Dr. Cosme, who has exceptional expertise in this procedure, I informed the patient that Dr. Cosme is on maternity leave and will return at the end of December. I advised that waiting a month for her return is a safe course of action, as a short delay will not impact the outcome, and it is more important to have the procedure done correctly. The patient understood the rationale and agreed to wait for Dr. Cosme. I will arrange for an appointment to be made for him. Patient Instructions - You have multiple small growths, called nodules, on your thyroid gland. - Most of these (95%) are not cancerous and grow very slowly. - One of the nodules has features that require a closer look, so a biopsy is recommended. - For this procedure, a very thin needle is used to take a small sample of cells from the nodule for testing. - It is recommended you wait for our specialist, Dr. Cosme, who will return at the end of December, to perform this biopsy, as she is an expert in this procedure. - Waiting a month for her return is safe and will not change your outcome. - We will help you schedule an appointment with Dr. Cosme for when she returns. - For more information, you can visit reliable websites such as [email or web address], [email or web address], or [email or web address]. Orders: Orders US biopsy thyroid Today E04.1 - Nontoxic single thyroid nodule Coding Level of Care Code New Pt Level 4 (74779) Diagnoses Thyroid nodule E04.1
== END 2025-11-01 09:34 | disposition home or self-care (01) ==
LOC: HO.ENCR 08:42
PROVIDERS: PCP Nurse Practitioner Family; Visit Provider Internal Medicine Endocrinology, Diabetes & Metabolism
DX: E04.1 Nontoxic single thyroid nodule (principal)
CPT/HCPCS: 99204